=== PATIENT | male | born 1970 | race Caucasian/White ===

== ENCOUNTER 2021-09-05 12:41 | Emergency (ER) | payer OTHER, SELFPAY ==
[2021-09-05 12:56] VITALS: BP 150/96; PULSE 69; RESP 18; TEMP 36.6; O2SAT 100; BMI 26.4
--- NOTE | 2021-09-05 13:09 | DI.RAD.S_ITS ---
PROCEDURE: XR FOOT RT 2V INDICATIONS: pain, redness to top right foot 2nd 3rd digits TECHNIQUE: 2 views of the foot were acquired. COMPARISON: None. FINDINGS: Bones: No fractures or dislocations. No suspicious bony lesions. Mild degenerative changes of the great toe. Soft tissues: No tibiotalar joint effusion. Enthesophyte at the Achilles insertion of the calcaneus with mild soft tissue prominence. IMPRESSION: No acute osseous abnormality. Spurring of the Achilles insertion of the calcaneus post mild soft tissue swelling adjacently. Recommend correlation for tendinitis. Dictated by: Young Will D.O. on 09/05/2021 at 12:36 Approved by: Young Will D.O. on 09/05/2021 at 12:38
--- NOTE | 2021-09-05 13:11 | ED_ITS ---
HPI - Extremity Injury (Lower) <Roland Carrera PA-C - Last Filed: 09/05/21 16:22> General Chief Complaint: Extremity Injury, Lower Stated Complaint: pos dvt sent by [facility] Time Seen by Provider: 09/05/21 12:55 Source: patient Mode of arrival: Ambulatory History of Present Illness HPI Narrative: Freddie presents today with chief complaint of right foot swelling and discomfort that he 1st noticed today. He reports that he was wearing some new shoes at work this last week and thinks that that may have contributed to his symptoms. He denies any significant injury at this time. He went to the walk-in clinic today and they were concerned about possible blood clot recommend that he come down here to be evaluated. He reports that the pain is worse at the bottom of his foot towards the ball just underneath his great toe and 2nd toe. He denies any history of blood clots, recent surgery, recent travel. Related Data Home Medications Medication Instructions Recorded Confirmed MULTIVITAMIN 1 cap PO QDAY #0 11/09/12 duloxetine 60 mg capsule,delayed 60 mg PO DAILY 09/05/21 09/05/21 release Previous Rx's Medication Instructions Recorded cephalexin 500 mg capsule 500 mg PO TID #21 cap 09/05/21 Allergies Allergy/AdvReac Type Severity Reaction Status Date / Time amoxicillin Allergy Intermediate Rash Verified 09/05/21 16:07 doxycycline Allergy Intermediate Rash Verified 09/05/21 16:07 Review of Systems <Roland Carrera PA-C - Last Filed: 09/05/21 16:22> Review of Systems Narrative: As per HPI Patient History <Roland Carrera PA-C - Last Filed: 09/05/21 16:22> Social History Smoking Status: Never smoker Smoking Status: Never smoker alcohol intake frequency: 0-2 drinks per day Substance Use Type: does not use Exam <Roland Carrera PA-C - Last Filed: 09/05/21 16:22> Narrative Exam Narrative: Exam Narrative: Const General: cooperative, healthy appearing, comfortable, no acute distress, well developed and well groomed Nutritional Appearance: average body habitus Orientation: alert and oriented x3 HENMT Head: normal to inspection and atraumatic Ears: hearing grossly normal bilaterally Nose: external nose normal and nares normal Face and sinus: normal facial exam Neck Neck: normal visual inspection and supple Resp Effort & Inspection: normal respiratory effort, able to speak in complete sentences, no audible wheezes, not labored, no nasal flaring and no respiratory distress Neuro General: alert, oriented x3, gait normal, tone normal and moves all extremities Cognition: normal cognition Speech: speech normal Gait: normal gait Extremities: Lower extremities exposed. Warmth and erythema noted to the top of the right foot with surrounding erythema. No significant pedal edema or calf tenderness. Calf circumference is 40 cm bilaterally. Psych Appearance: grossly normal and well kempt Mental Status: mental status grossly normal Speech and Movement: speech and movement normal Mood: congruent mood Affect: normal affect Initial Vital Signs Initial Vital Signs: Vital Signs Temperature 98 F 09/05/21 12:56 Pulse Rate 69 09/05/21 12:56 Respiratory Rate 18 09/05/21 12:56 Blood Pressure 150/96 H 09/05/21 12:56 Pulse Oximetry 100 09/05/21 12:56 <Regina Kwan DO - Last Filed: 09/06/21 07:36> Initial Vital Signs Initial Vital Signs: Vital Signs Temperature 98 F 09/05/21 12:56 Pulse Rate 69 09/05/21 12:56 Respiratory Rate 18 09/05/21 12:56 Blood Pressure 150/96 H 09/05/21 12:56 Pulse Oximetry 100 09/05/21 12:56 Course <Roland Carrera PA-C - Last Filed: 09/05/21 16:22> Orders Ordered: Discontinued Medications Ketorolac Tromethamine (Ketorolac 30 Mg/Ml Vial) 30 mg IM NOW ONE Stop: 09/05/21 16:02 Last Admin: 09/05/21 16:07 Dose: 30 mg Documented by: FRED Vital Signs Vital signs: Vital Signs - 8 hr 09/05/21 12:56 Temperature 98 F Pulse Rate 69 Respiratory Rate 18 Blood Pressure 150/96 H Pulse Oximetry 100 <DO Sejal Ceron Last Filed: 09/06/21 07:36> Orders Ordered: Discontinued Medications Ketorolac Tromethamine (Ketorolac 30 Mg/Ml Vial) 30 mg IM NOW ONE Stop: 09/05/21 16:02 Last Admin: 09/05/21 16:07 Dose: 30 mg Documented by: FRED Vital Signs Vital signs: Vital Signs - 8 hr 09/05/21 12:56 Temperature 98 F Pulse Rate 69 Respiratory Rate 18 Blood Pressure 150/96 H Pulse Oximetry 100 MDM - Extremity Injury (Lower) <Roland Carrera PA-C - Last Filed: 09/05/21 16:22> Lab Data Labs: Lab Results 09/05/21 09/05/21 Range/Units 13:40 13:40 D-Dimer 420 H (<230) ng/mL Uric Acid 5.1 (3.5-8.5) mg/dL MDM Narrative Medical decision making narrative: Differential diagnosis includes DVT, gout, septic arthritis, superficial thrombophlebitis, cellulitis. Patient is able to range his toes without si gnificant pain both passively and actively. Ultrasound is reassuring for no DVT. He has equal calf diameter bilaterally. Erythema edema is predominantly located on his foot and ankle. We will treat for cellulitis at this time with return precautions discussed. Patient verbalizes understanding and agrees to the plan and has no further concerns at this time. <Regina Kwan DO - Last Filed: 09/06/21 07:36> Lab Data Labs: Lab Results 09/05/21 09/05/21 Range/Units 13:40 13:40 D-Dimer 420 H (<230) ng/mL Uric Acid 5.1 (3.5-8.5) mg/dL Discharge Plan Departure Patient Disposition: Home Clinical Impression: Cellulitis of foot, right Instructions: DI for Cellulitis -- Adult Activity Restrictions/Additional Instructions: It was very nice to meet you both this afternoon. Please take antibiotics in addition to anti-inflammatories to help treat symptoms. Please give your primary care office a call and schedule a follow-up appointment ideally for next week. If you develop fever, worsening swelling, increased pain please return for re-evaluation. Thank you Roland Carrera PA-C Prescriptions: New cephalexin 500 mg capsule 500 mg PO TID Qty: 21 0RF No Action duloxetine 60 mg capsule,delayed release(DR/EC) 60 mg PO DAILY 0RF MULTIVITAMIN 1 cap PO QDAY Qty: 0 0RF Referrals: Huseyin Cam MD [Primary Care Provider] - <Regina Kwan DO - Last Filed: 09/06/21 07:36> Cosign ED Attending Cosignature Attestation: I was immediately available in the department for consultation. Documentation has been reviewed.
[2021-09-05 14:08] LABS: Uric Acid 5.1 mg/dL (3.5-8.5)
[2021-09-05 14:09] LABS: D Dimer 420 ng/mL (<230)
--- NOTE | 2021-09-05 14:28 | DI.US.S_ITS ---
PROCEDURE: US PERIPH VENOUS LOW EXTREM RT INDICATIONS: LOWER LEG AND FOOT SWELLING. PAIN WITH STANDING. TECHNIQUE: Real-time imaging, as well as color and pulse Doppler interrogation, were performed of the lower extremity deep veins from the inguinal ligament to the popliteal fossa. COMPARISON: None. FINDINGS: The common femoral, femoral and popliteal veins are normally compressible, and free of intraluminal thrombus. Color and pulse Doppler demonstrate normal phasic intraluminal flow. There is normal augmentation response to distal compression maneuver. Edema is noted within this superficial soft tissues of the lower leg. IMPRESSION: No evidence of right lower extremity deep venous thrombosis. Nonspecific soft tissue edema of the lower leg. Dictated by: Young Will D.O. on 09/05/2021 at 15:07 Approved by: Young Will D.O. on 09/05/2021 at 15:09
[2021-09-05] MEDS: KETOROLAC 30 MG/ML VIAL IM (16:07)
== END 2021-09-05 16:16 | disposition home or self-care (01) ==
PROVIDERS: Emergency Provider Physician Assistant; PCP Internal Medicine
DX: L03.115 Cellulitis of right lower limb (principal)
CPT/HCPCS: 73620; 84550; 85379; 93971; 96372; 99283; J1885

== ENCOUNTER → 2025-07-01 15:37 | Outpatient (ROUT) | payer OTHER, SELFPAY ==
[2025-07-01 15:55] LABS: Add Manual Diff / Slide Review NO; Hematocrit 30.8 % (41-53); Hemoglobin 10.0 g/dL (13.5-17.5); Lymphocytes Absolute Auto 1900 /uL (1100-4500); Mean Corpuscular HGB Conc 32.3 % (30-36); Mean Corpuscular Hemoglobin 24.4 PG (26-34); Mean Corpuscular Volume 75.5 fL (80-100); Platelet Count 370 X10^3/uL (150-400)
[2025-07-01 16:04] LABS: Alanine Aminotransferase 19 IU/L (<50); Albumin 3.2 g/dL (3.5-5.0); Albumin Globulin Ratio 0.9 (1.0-2.8); Alkaline Phosphatase 166 U/L (38-126); Blood Urea Nitrogen 15 mg/dL (9-20); Calcium 8.6 mg/dL (8.4-10.2); Carbon Dioxide 21 mmol/L (22-32); Chloride 100 mmol/L (98-107); Estimated Glomerular Filt Rate > 60 mL/min (>60); Globulin 3.7 g/dL (1.7-4.1); Glucose 110 mg/dL (70-99); HEMOLYSIS < 15 (0-50); Magnesium 1.8 mg/dL (1.6-2.3); Phosphorous 3.5 mg/dL (2.5-4.5); Potassium 3.9 mmol/L (3.4-5.1); Sodium 130 mmol/L (137-145); Total Protein 6.9 g/dL (6.3-8.2)
== END ==
PROVIDERS: PCP Internal Medicine; Visit Provider Specialist
DX: B99.9 Unspecified infectious disease (principal); E43 Unspecified severe protein-calorie malnutrition; K65.1 Peritoneal abscess
CPT/HCPCS: 80053; 83735; 84100; 85025

== ENCOUNTER → 2025-07-10 08:37 | Outpatient (CLI) | payer OTHER, SELFPAY | LOC: WC 08:54 | PROVIDERS: Visit Provider Surgery | DX: K94.19 Other complications of enterostomy (principal); Z93.2 Ileostomy status | CPT/HCPCS: 99203; 99213 ==

== ENCOUNTER → 2025-07-17 11:28 | Outpatient (CLI) | payer OTHER, SELFPAY ==
--- OUTSIDE RECORDS SUMMARY | 2025-07-19 16:03 | XMS_ITS | Encounter Summary ---
Author Organization [facility] Address [address] [address] Care Team Providers Care Commercial Credit Analyst Name Role Phone Unavailable Primary Care Provider Unavailabl e Encounter Details Date Type Department Care Team (Late st Contact Info) Description 06/10/2025 Lab Requisition [facility] [address] [place] [address] [place] [address] Zenaida Maddox MD [address] [address] Unspecified severe protein-calorie malnutrition Social History Tobacco Use Types Packs/Day Years Used Date Smoking Tobacco: Never Assessed Sex and Gender Information Value Date Recorded Sex Assigned at Not on file Legal Sex Male 7:40 PM PDT Gender Identity Not on file Sexual Orientation Not on file documented as of this encounter Plan of Treatment Not on file documented as of this encounter Procedures Procedure Name Priority Date/Time Associated Diagnosis Comments *CBC WITH DIFFERENTIAL, LAB GENERATED ORDER Routine 06/10/2025 1:05 PM PDT Unspecified severe protein-calorie malnutrition CBC WITH DIFFERENTIAL Routine 06/10/2025 1:05 PM PDT Unspecified severe protein-calorie malnutrition C-REACTIVE PROTEIN Routine 06/10/2025 1: 05 PM PDT Unspecified severe protein-calorie malnutrition TRIGLYCERIDES Routine 06/10/2025 1:05 PM PDT Unspecified severe protein-calorie malnutrition PREALBUMIN Routine 06/10/2025 1:05 PM PDT Unspecified severe protein-calorie malnutrition PHOSPHORUS Routine 06/10/2025 1:05 PM PDT Unspecified severe protein-calorie malnutrition MAGNESIUM Routine 06/10/2025 1:05 PM PDT Unspecified severe protein-calorie malnutrition COMPREHENSIVE METABOLIC PANEL Routine 06/10/2025 1:05 PM PDT Unspecified severe protein-calorie malnutrition documented in this encounter Results * (ABNORMAL) CBC with Differential (06/10/2025 1:05 PM PDT) WBC 8.6 4.0 - 11.0 K/uL 06/10/2025 5:16 PM PDT [facility] RBC 4.44 4.31 - 5.77 M/uL 06/10/2025 5:16 PM PDT [facility] HGB 11.4(L) 13.2 - 17.5 g/dL 06/10/2025 5:16 PM PDT [facility] HCT 34.8(L) 38.9 - 49.9 % 06/10/2025 5:16 PM PDT [facility] MCV 78.4(L) 80.0 - 100.0 fL 06/10/2025 5:16 PM PDT [facility] MCH 25.7(L) 27.8 - 33.8 pg 06/10/2025 5:16 PM PDT [facility] MCHC 32.8 31.5 - 36.5 g/dL 06/10/2025 5:16 PM PDT [facility] RDW 15.8(H) 11.5 - 14.2 % 06/10/2025 5:16 PM PDT [facility] Platelets 264 150 - 400 K/uL 06/10/2025 5:16 PM PDT [facility] MPV 12.0 8.5 - 12.4 fL 06/10/2025 5:16 PM PDT [facility] Neutrophils % 67.6 % 06/10/2025 5:16 PM PDT [facility] Immat Gran % 0.3 % 06/10/2025 5:16 PM PDT [facility] Lymphocytes % 21.7 % 06/10/2025 5:16 PM PDT [facility] Monocytes % 8.4 % 06/10/2025 5:16 PM PDT [facility] Eosinophils % 1.9 % 06/10/2025 5:16 PM PDT [facility] Basophils % 0.1 % 06/10/2025 5:16 PM PDT [facility] Neutrophils # 5.8 1.5 - 8.0 K/uL 06/10/2025 5:16 PM PDT [facility] Immat Gran # 0.0 0.0 - 0.1 K/uL 06/10/2025 5:16 PM PDT [facility] Lymphocytes # 1.9 1.0 - 3.5 K/uL 06/10/2025 5:16 PM PDT [facility] Monocytes # 0.7 0.2 - 1.0 K/uL 06/10/2025 5:16 PM PDT [facility] Eosinophils # 0.2 0.0 - 0.5 K/uL 06/10/2025 5:16 PM PDT [facility] Basophils # 0.0 0.0 - 0.2 K/uL 06/10/2025 5:16 PM PDT [facility] nRBC 06/10/2025 5:16 PM PDT [facility] Blood Venipuncture / Unknown 06/10/2025 1:05 PM PDT 06/10/2025 5:05 PM PDT Zenaida Maddox MD LAB BLOOD ORDERABLES Final R esult [facility] [address] [place] [address] * Prealbumin (06/10/2025 1:05 PM PDT) Prealbumin 16.2 10.0 - 40.0 mg/dL 06/10/2025 11:25 PM PDT [facility] 710 Blood Venipuncture / Unknown 06/10/2025 1:05 PM PDT 06/10/2025 5:05 PM PDT Zenaida Maddox MD LAB BLOOD ORDERABLES Final R esult [facility] [address] [place] [address] * (ABNORMAL) C-Reactive Protein (06/10/2025 1:05 PM PDT) C-Reactive Protein 6.2(H) <1.0 mg/dL 06/10/2025 5:34 PM PDT [facility] Blood Venipuncture / Unknown 06/10/2025 1:05 PM PDT 06/10/2025 5:05 PM PDT [facility] - 06/10/2025 5:34 PM PDT Note: CRP is used to indicate the presence of an inflammatory process; hsCRP (high sensitivity CRP) is used for CVD risk assessment. Zenaida Maddox MD LAB BLOOD ORDERABLES Final R esult [facility] [address] [place], [place] [id number] * Triglycerides (06/10/2025 1:05 PM PDT) Triglycerides 60 <150 mg/dL 06/10/2025 11:25 PM PDT [facility] 710 Comment: Normal: <150 Borderline: 150-199 High: 200-499 Very High: > or = 500 Blood Venipuncture / Unknown 06/10/2025 1:05 PM PDT 06/10/2025 5:05 PM PDT Zenaida Maddox MD LAB BLOOD ORDERABLES Final R esult [facility] [address] [place] [id number] * Phosphorus (06/10/2025 1:05 PM PDT) Phosphorus 3.6 2.4 - 5.1 mg/dL 06/10/2025 5:34 PM PDT [facility] Blood Venipuncture / Unknown 06/10/2025 1:05 PM PDT 06/10/2025 5:05 PM PDT Zenaida Maddox MD LAB BLOOD ORDERABLES Final R esult [address] [id number] * (ABNORMAL) Magnesium (06/10/2025 1:05 PM PDT) [facility] Magnesium 1.7(L) 1.8 - 2.4 mg/dL 06/10/2025 5:34 PM PDT [facility] Blood Venipuncture / Unknown 06/10/2025 1:05 PM PDT 06/10/2025 5:05 PM PDT Zenaida Maddox MD LAB BLOOD ORDERABLES Final R esult [address] [phone] * (ABNORMAL) Comprehensive Metabolic Panel (06/10/2025 1:05 PM PDT) [facility] Sodium 134(L) 136 - 145 mmol/L 06/10/2025 5:34 PM PDT [facility] Potassium 3.9 3.5 - 5.1 mmol/L 06/10/2025 5:34 PM PDT [facility] Chloride 102 95 - 109 mmol/L 06/10/2025 5:34 PM PDT [facility] CO2 27 21 - 32 mmol/L 06/10/2025 5:34 PM PDT [facility] Anion Gap 5 3 - 15 mmol/L 06/10/2025 5:34 PM PDT [facility] Glucose 84 70 - 99 mg/dL 06/10/2025 5:34 PM PDT [facility] BUN 18 7 - 18 mg/dL 06/10/2025 5:34 PM PDT [facility] Creatinine 0.75 0.70 - 1.30 mg/dL 06/10/2025 5:34 PM PDT [facility] eGFR (CKD-EPI 2020) 108 >=60 mL/min/1. 73m2 06/10/2025 5:34 PM PDT [facility] Protein, Total 6.6 6.4 - 8.2 g/dL 06/10/2025 5:34 PM PDT [facility] Albumin 2.4(L) 3.4 - 5.0 g/dL 06/10/2025 5:34 PM PDT [facility] Globulin 4.2 2.7 - 4.3 g/dL 06/10/2025 5:34 PM PDT [facility] Calcium 8.9 8.5 - 10.1 mg/dL 06/10/2025 5:34 PM PDT [facility] Bilirubin, Total 0.2 0.1 - 1.2 mg/dL 06/10/2025 5:34 PM PDT [facility] Alkaline Phosphatase 182(H) 46 - 116 U/L 06/10/2025 5:34 PM PDT [facility] ALT 20 12 - 78 U/L 06/10/2025 5:34 PM PDT [facility] AST 17 15 - 41 U/L 06/10/2025 5:34 PM PDT [facility] Blood Venipuncture / Unknown 06/10/2025 1:05 PM PDT 06/10/2025 5:05 PM PDT us Zenaida Maddox MD LAB BLOOD ORDERABLES Final R esult [address] [address] documented in this encounter Visit Diagnoses Diagnosis Unspecified severe protein-calorie malnutrition documented in this encounter
--- OUTSIDE RECORDS SUMMARY | 2025-07-19 16:03 | XMS_ITS | Encounter Summary ---
Author Organization [facility] Address [address] [place] [address] Care Team Providers Care Head Inspector Name Role Phone Rasheed Kimble Primary Care Provider [phone] Reason for Referral * Outpatient Service (Urgent) - Authorized Specialty Diagnoses / Procedures Referred By Elena hood Referred To Contact Gastroenterology Diagnoses Enterocutaneous fistula Intra-abdominal abscess S/P right colectomy Procedures REF GASTROENTEROLOGY - EXTERNAL OFFICE/OUTPATIENT ESTABLISHED MOD MDM 30 MIN [address] [place] [address] Phone: tel: fax: [facility] [address] [place] [phone] Referral ID Status Reason Start Date Expiration Date Visits Requested Visits Authorized [id number] Authorized Evaluate and Treat-Surgery if Indicated 03/27/2025 03/27/2026 6 6 Encounter Details Date Type Department Care Team (Latest Contact Info) Description 03/27/2025 Community Orders Non [facility] Provider [address] [place] [address] Enterocutaneous fistula (Primary Dx); Intra-abdominal abscess; S/P right colectomy Social History Tobacco Use Types Packs/Day Years Used Date Smoking Tobacco: Never Assessed Sex and Gender Information Value Date Recorded Sex Assigned at Not on file Legal Sex Male 9:41 PM PST Gender Identity Not on file Sexual Orientation Not on file documented as of this encounter Plan of Treatment Not on file documented as of this encounter Visit Diagnoses Diagnosis Enterocutaneous fistula- Primary Fistula of intestine, excluding rectum and anus Intra-abdominal abscess Peritoneal abscess S/P right colectomy Other postprocedural status documented in this encounter Care Teams Head Inspector Relationship Specialty Start Date End Date Rasheed Kimble [address] [address] PCP - General 04/13/17 documented as of this encounter
--- OUTSIDE RECORDS SUMMARY | 2025-07-19 16:03 | XMS_ITS | Encounter Summary ---
Author Organization [facility] Address [address] [address] Care Team Providers Care Bulk Mail Clerk Name Role Phone Unavailable Primary Care Provider Unavailabl e Encounter Details Date Type Department Care Team (Late st Contact Info) Description 06/04/2025 Lab Requisition [facility] [place], [place] [address] [place], [place] [id number] Background, Provider Not In System [facility] [address] [phone] Unspecified infectious disease; Unspecified severe protein-calorie malnutrition; PH Lab Use Only Social History Tobacco Use Types Packs/Day Years [...] Comments *CBC WITH DIFFERENTIAL, LAB GENERATED ORDER STAT 06/04/2025 1:55 PM PDT Unspecified infectious disease Unspecified severe protein-calorie malnutrition PH Lab Use Only CBC WITH DIFFERENTIAL STAT 06/04/2025 1:55 PM PDT Unspecified infectious disease Unspecified severe protein-calorie malnutrition PH Lab Use Only PHOSPHORUS STAT 06/04/2025 1:55 PM PDT Unspecified infectious disease Unspecified severe protein-calorie malnutrition PH Lab Use Only MAGNESIUM STAT 06/04/2025 1:55 PM PDT Unspecified infectious disease Unspecified severe protein-calorie malnutrition PH Lab Use Only COMPREHENSIVE METABOLIC PANEL STAT 06/04/2025 1:55 PM PDT Unspecified infectious disease Unspecified severe protein-calorie malnutrition PH Lab Use Only documented in this encounter Results * (ABNORMAL) CBC with Differential (06/04/2025 1:55 PM PDT) WBC 7.6 4.0 - 11.0 K/uL 06/04/2025 8:25 PM PDT [facility] 710 RBC 4.26(L) 4.31 - 5.77 M/uL 06/04/2025 8:25 PM PDT [facility] 710 HGB 10.9(L) 13.2 - 17.5 g/dL 06/04/2025 8:25 PM PDT [facility] 710 HCT 35.4(L) 38.9 - 49.9 % 06/04/2025 8:25 PM PDT [facility] 710 MCV 83.1 80.0 - 100.0 fL 06/04/2025 8:25 PM PDT [facility] 710 MCH 25.6(L) 27.8 - 33.8 pg 06/04/2025 8:25 PM PDT [facility] 710 MCHC 30.8(L) 31.5 - 36.5 g/dL 06/04/2025 8:25 PM PDT [facility] 710 RDW 16.1(H) 11.5 - 14.2 % 06/04/2025 8:25 PM PDT [facility] 710 Platelets 304 150 - 400 K/uL 06/04/2025 8:25 PM PDT [facility] 710 MPV 12.4 8.5 - 12.4 fL 06/04/2025 8:25 PM PDT [facility] 710 Neutrophils % 60.3 % 06/04/2025 8:25 PM PDT [facility] 710 Immat Gran % 0.3 % 06/04/2025 8:25 PM PDT [facility] 710 Lymphocytes % 29.7 % 06/04/2025 8:25 PM PDT [facility] 710 Monocytes % 6.3 % 06/04/2025 8:25 PM PDT [facility] 710 Eosinophils % 3.3 % 06/04/2025 8:25 PM PDT [facility] 710 Basophils % 0.1 % 06/04/2025 8:25 PM PDT [facility] 710 Neutrophils # 4.6 1.5 - 8.0 K/uL 06/04/2025 8:25 PM PDT [facility] 710 Immat Gran # 0.0 0.0 - 0.1 K/uL 06/04/2025 8:25 PM PDT [facility] 710 Lymphocytes # 2.3 1.0 - 3.5 K/uL 06/04/2025 8:25 PM PDT [facility] 710 Monocytes # 0.5 0.2 - 1.0 K/uL 06/04/2025 8:25 PM PDT [facility] 710 Eosinophils # 0.3 0.0 - 0.5 K/uL 06/04/2025 8:25 PM PDT [facility] 710 Basophils # 0.0 0.0 - 0.2 K/uL 06/04/2025 8:25 PM PDT [facility] 710 nRBC 06/04/2025 8:25 PM PDT [place] [address] Blood 06/04/2025 1:55 PM PDT 06/04/2025 8:14 PM PDT Provider Not In System Background LAB BLOOD ORDE RABLES Final Result [address] [address] * Phosphorus (NOT [facility]) (06/04/2025 1:55 PM PDT) Phosphorus 2.8 2.4 - 5.1 mg/dL 06/04/2025 8:34 PM PDT [place] [address] Blood 06/04/2025 1:55 PM PDT 06/04/2025 8:14 PM PDT us Provider Not In System Background LAB BLOOD ORDE RABLES Final Result [address] [address] * Magnesium (NOT [facility]) (06/04/2025 1:55 PM PDT) Magnesium 1.7 1.6 - 2.6 mg/dL 06/04/2025 8:34 PM PDT [facility] 710 Blood 06/04/2025 1:55 PM PDT 06/04/2025 8:14 PM PDT us Provider Not In System Background LAB BLOOD ORDE ROBER Final Result [facility] [address] [place], [place] [id number] * (ABNORMAL) Comprehensive Metabolic Panel (NOT [facility]) (06/04/2025 1:55 PM PDT) Pathologist [facility] Sodium 135(L) 136 - 145 mmol/L 06/04/2025 8:34 PM PDT [facility] 710 Potassium 3.5 3.5 - 5.1 mmol/L 06/04/2025 8:34 PM PDT [facility] 710 Chloride 106 98 - 111 mmol/L 06/04/2025 8:34 PM PDT [facility] 710 CO2 21 21 - 32 mmol/L 06/04/2025 8:34 PM PDT [facility] 710 Anion Gap 8 3 - 12 mmol/L 06/04/2025 8:34 PM PDT [facility] 710 Glucose 117(H) 70 - 99 mg/dL 06/04/2025 8:34 PM PDT [facility] 710 BUN 17 9 - 23 mg/dL 06/04/2025 8:34 PM PDT [facility] 710 Creatinine 0.82 0.70 - 1.30 mg/dL 06/04/2025 8:34 PM PDT [facility] 710 eGFR (CKD-EPI 2020) 105 >=60 mL/min/1. 73m2 06/04/2025 8:34 PM PDT [facility] 710 Protein, Total 6.5 5.7 - 8.2 g/dL 06/04/2025 8:34 PM PDT [facility] 710 Albumin 2.4(L) 3.4 - 5.0 g/dL 06/04/2025 8:34 PM PDT [facility] 710 Globulin 4.1(H) 2.2 - 3.5 g/dL 06/04/2025 8:34 PM PDT [facility] 710 Calcium 8.7 8.7 - 10.4 mg/dL 06/04/2025 8:34 PM PDT [facility] 710 Bilirubin, Total <0.2(L) 0.3 - 1.2 mg/dL 06/04/2025 8:34 PM PDT [facility] 710 Alkaline Phosphatase 176(H) 38 - 126 U/L 06/04/2025 8:34 PM PDT [facility] 710 ALT 23 9 - 54 U/L 06/04/2025 8:34 PM PDT [place] [address] AST 19 13 - 40 U/L 06/04/2025 8:34 PM PDT [facility] 710 Blood 06/04/2025 1:55 PM PDT 06/04/2025 8:14 PM PDT us Provider Not In System Background LAB BLOOD ORDE ROBER Final Result Performing Organization Address City/State/[facility] Co de Phone Number [facility] [address] [place], [place] [phone] documented in this encounter Visit Diagnoses Diagnosis Unspecified infectious disease Unspecified severe protein-calorie malnutrition PH Lab Use Only Lab Use Only documented in this encounter
--- OUTSIDE RECORDS SUMMARY | 2025-07-19 16:03 | XMS_ITS | Clinical Summary ---
Author Organization Communication Science [facility] Address [address] [place] [address] Care Team Providers Care Rn Or Lpn Name Role Phone Selected, No Pcp Primary Care Provider Unavailab le Social History Tobacco Use Types Packs/Day Years Used Date Smoking Tobacco: Never Assessed Comments Unknown Sex and Gender Information Value Date Recorded Sex Assigned at Unknown 09/19/2019 4:35 PM PST Legal Sex Male 4:35 PM PST Gender Identity Not Listed 09/19/2019 4:35 PM PST Sexual Orientation Not on file Plan of Treatment Not on file Insurance [place] [facility] [place] [facility] [place] Care Teams Rn Or Lpn Relationship Specialty Start Date End Date Selected, No Pcp PCP - General PCP 05/02/20
--- OUTSIDE RECORDS SUMMARY | 2025-07-19 16:03 | XMS_ITS | Encounter Summary ---
Author Organization [facility] Address [address] [place] [address] Care Team Providers Care Polymerization Oven Operator Name Role Phone Rasheed Kimble Primary Care Provider [phone] Reason for Referral * Outpatient Service (Routine) - Authorized Specialty Diagnoses / Procedures Referred By Elena t Referred To Contact Infectious Disease Diagnoses Intra-abdominal infection Procedures REF INFECTIOUS DISEASE - EXTERNAL OFFICE/OUTPATIENT ESTABLISHED MOD MDM 30 MIN Zenaida Hernandez [id number] [place] [address] Phone: tel: fax: Medicine, [facility] [address] [address] [place] [address] Referral ID Status Reason Start Date Expiration Date Visits Requested Visits Authorized [id number] Authorized Evaluate and Treat-Surgery if Indicated 03/22/2025 03/22/2026 6 6 Encounter Details Date Type Department Care Team (Late st Contact Info) Description 03/22/2025 Community Orders Non [facility] Provider Zenaida Hernandez [id number] [place], [place] [id number] Intra-abdominal infection (Primary Dx) Social History Tobacco Use Types Packs/Day Years Used Date Smoking Tobacco: Never Assessed Sex and Gender Information Value Date Recorded Sex Assigned at Not on file Legal Sex Male 9:41 PM PST Gender Identity Not on file Sexual Orientation Not on file documented as of this encounter Plan of Treatment Not on file documented as of this encounter Visit Diagnoses Diagnosis Intra-abdominal infection- Primary Unspecified infectious and parasitic diseases documented in this encounter Care Teams Polymerization Oven Operator Relationship Specialty Start Date End Date Rasheed Kimble [address] [place] [address] PCP - General 04/13/17 documented as of this encounter
--- OUTSIDE RECORDS SUMMARY | 2025-07-19 16:04 | XMS_ITS | Encounter Summary ---
Author Organization [facility] Address [address] [address] Care Team Providers Care Aviation Medicine Specialist Name Role Phone Unavailable Primary Care Provider Unavailabl e Encounter Details Date Type Department Care Team (Late st Contact Info) Description 06/24/2025 Lab Requisition [facility] [address] [place] [address] [place] [address] Rasheed Kimble MD [address] [place] [address] Unspecified severe protein-calorie malnutrition Social History Tobacco [...] *CBC WITH DIFFERENTIAL, LAB GENERATED ORDER Routine 06/24/2025 9:45 AM PDT Unspecified severe protein-calorie malnutrition CBC WITH DIFFERENTIAL Routine 06/24/2025 9:45 AM PDT Unspecified severe protein-calorie malnutrition PHOSPHORUS Routine 06/24/2025 9:45 AM PDT Unspecified severe protein-calorie malnutrition MAGNESIUM Routine 06/24/2025 9:45 AM PDT Unspecified severe protein-calorie malnutrition COMPREHENSIVE METABOLIC PANEL Routine 06/24/2025 9:45 AM PDT Unspecified severe protein-calorie malnutrition documented in this encounter Results * (ABNORMAL) CBC with Differential (06/24/2025 9:45 AM PDT) WBC 11.0 4.0 - 11.0 K/uL 06/24/2025 6:12 PM PDT [facility] RBC 4.56 4.31 - 5.77 M/uL 06/24/2025 6:12 PM PDT [facility] HGB 11.3(L) 13.2 - 17.5 g/dL 06/24/2025 6:12 PM PDT [facility] HCT 35.9(L) 38.9 - 49.9 % 06/24/2025 6:12 PM PDT [facility] MCV 78.7(L) 80.0 - 100.0 fL 06/24/2025 6:12 PM PDT [facility] MCH 24.8(L) 27.8 - 33.8 pg 06/24/2025 6:12 PM PDT [facility] MCHC 31.5 31.5 - 36.5 g/dL 06/24/2025 6:12 PM PDT [facility] RDW 15.8(H) 11.5 - 14.2 % 06/24/2025 6:12 PM PDT [facility] Platelets 363 150 - 400 K/uL 06/24/2025 6:12 PM PDT [facility] MPV 12.2 8.5 - 12.4 fL 06/24/2025 6:12 PM PDT [facility] Neutrophils % 70.0 % 06/24/2025 6:12 PM PDT [facility] Immat Gran % 0.6 % 06/24/2025 6:12 PM PDT [facility] Lymphocytes % 21.1 % 06/24/2025 6:12 PM PDT [facility] Monocytes % 6.6 % 06/24/2025 6:12 PM PDT [facility] Eosinophils % 1.5 % 06/24/2025 6:12 PM PDT [facility] Basophils % 0.2 % 06/24/2025 6:12 PM PDT [facility] Neutrophils # 7.7 1.5 - 8.0 K/uL 06/24/2025 6:12 PM PDT [facility] Immat Gran # 0.1 0.0 - 0.1 K/uL 06/24/2025 6:12 PM PDT [facility] Lymphocytes # 2.3 1.0 - 3.5 K/uL 06/24/2025 6:12 PM PDT [facility] Monocytes # 0.7 0.2 - 1.0 K/uL 06/24/2025 6:12 PM PDT [facility] Eosinophils # 0.2 0.0 - 0.5 K/uL 06/24/2025 6:12 PM PDT [facility] Basophils # 0.0 0.0 - 0.2 K/uL 06/24/2025 6:12 PM PDT [facility] nRBC 06/24/2025 6:12 PM PDT [facility] Blood 06/24/2025 9:45 AM PDT 06/24/2025 6:09 PM PDT Rasheed Kimble MD LAB BLOOD ORDERABLES Final Resu lt Performing Organization Address [facility] de Phone Number [facility] [address] [place], [place] [phone] * Phosphorus (06/24/2025 9:45 AM PDT) Phosphorus 4.0 2.4 - 5.1 mg/dL 06/24/2025 6:26 PM PDT [facility] Blood 06/24/2025 9:45 AM PDT 06/24/2025 6:09 PM PDT Rasheed Kimble MD LAB BLOOD ORDERABLES Final Resu lt Performing Organization Address [facility] de Phone Number [facility] [address] [place], [place] [phone] * Magnesium (06/24/2025 9:45 AM PDT) Magnesium 1.9 1.8 - 2.4 mg/dL 06/24/2025 6:26 PM PDT [facility] Blood 06/24/2025 9:45 AM PDT 06/24/2025 6:09 PM PDT Rasheed Kimble MD LAB BLOOD ORDERABLES Final Resu lt Performing Organization Address City/[facility]/ZIP Co de Phone Number [address] [address] * (ABNORMAL) Comprehensive Metabolic Panel (06/24/2025 9:45 AM PDT) Sodium 137 136 - 145 mmol/L 06/24/2025 6:26 PM PDT [facility] Potassium 4.3 3.5 - 5.1 mmol/L 06/24/2025 6:26 PM PDT [facility] Chloride 104 95 - 109 mmol/L 06/24/2025 6:26 PM PDT [facility] CO2 26 21 - 32 mmol/L 06/24/2025 6:26 PM PDT [facility] Anion Gap 7 3 - 15 mmol/L 06/24/2025 6:26 PM PDT [facility] Glucose 123(H) 70 - 99 mg/dL 06/24/2025 6:26 PM PDT [facility] BUN 18 7 - 18 mg/dL 06/24/2025 6:26 PM PDT [facility] Creatinine 0.86 0.70 - 1.30 mg/dL 06/24/2025 6:26 PM PDT [facility] eGFR (CKD-EPI 2020) 104 >=60 mL/min/1. 73m2 06/24/2025 6:26 PM PDT [facility] Protein, Total 7.1 6.4 - 8.2 g/dL 06/24/2025 6:26 PM PDT [facility] Albumin 2.4(L) 3.4 - 5.0 g/dL 06/24/2025 6:26 PM PDT [facility] Globulin 4.7(H) 2.7 - 4.3 g/dL 06/24/2025 6:26 PM PDT [facility] Calcium 8.8 8.5 - 10.1 mg/dL 06/24/2025 6:26 PM PDT [facility] Bilirubin, Total 0.3 0.1 - 1.2 mg/dL 06/24/2025 6:26 PM PDT [facility] Alkaline Phosphatase 200(H) 46 - 116 U/L 06/24/2025 6:26 PM PDT [facility] ALT 23 12 - 78 U/L 06/24/2025 6:26 PM PDT [facility] AST 14(L) 15 - 41 U/L 06/24/2025 6:26 PM PDT [facility] Blood 06/24/2025 9:45 AM PDT 06/24/2025 6:09 PM PDT us Rasheed Kimble MD LAB BLOOD ORDERABLES Final Resu lt [facility] [address] [place] [address] documented in this encounter Visit Diagnoses Diagnosis Unspecified severe protein-calorie malnutrition documented in this encounter
--- OUTSIDE RECORDS SUMMARY | 2025-07-19 16:04 | XMS_ITS | Encounter Summary ---
Author Organization [facility] Address [address] [place] [address] Care Team Providers Care Customer Experience Professional Name Role Phone Rasheed Kimble Primary Care Provider [phone] Reason for Referral * PT/OT/ST (Urgent) - Authorized Specialty Diagnoses / Procedures Referred By Elena hood Referred To Contact Physical Therapy Diagnoses Patellofemoral syndrome, left Lateral subluxation of patella, left, initial encounter Patellar tendinitis of left knee Iliotibial band syndrome of left side Procedures REF PHYSICAL THERAPY - EXTERNAL THERA PROC 1+ AREAS EA 15 MIN THERA EXERCISES Justino Patricio [address] [address] Phone: tel: fax: Therapy, [facility] Physical [address] [place] [address] Referral ID Status Reason Start Date Expiration Date Visits Requested Visits Authorized [id number] Authorized Itemized Services 11/12/2024 11/12/2025 15 15 Encounter Details Date Type Department Care Team (Late st Contact Info) Description 11/12/2024 Community Orders Non [facility] Provider Justino Patricio [address] [address] Patellofemoral syndrome, left (Primary Dx); Lateral subluxation of patella, left, initial encounter; Patellar tendinitis of left knee; Iliotibial band syndrome of left side Social History Tobacco Use Types Packs/Day Years Used Date Smoking Tobacco: Never Assessed Sex and Gender Information Value Date Recorded Sex Assigned at Not on file Legal Sex Male 9:41 PM PST Gender Identity Not on file Sexual Orientation Not on file documented as of this encounter Plan of Treatment Not on file documented as of this encounter Visit Diagnoses Diagnosis Patellofemoral syndrome, left- Primary Pain in joint, lower leg Lateral subluxation of patella, left, initial encounter Patellar tendinitis of left knee Patellar tendinitis Iliotibial band syndrome of left side Other disorder of muscle, ligament, and fascia documented in this encounter Care Teams Customer Experience Professional Relationship Specialty Start Date End Date Rasheed Kimble [address] [address] PCP - General 04/13/17 documented as of this encounter
--- OUTSIDE RECORDS SUMMARY | 2025-07-19 16:04 | XMS_ITS | Clinical Summary ---
Author Organization [facility] Address [address] [place] [address] Care Team Providers Care Stuffer Name Role Phone Unavailable Primary Care Provider Unavailabl e Encounters Date Type Department Care Team Description 06/24/2025 Lab Requisition [facility] [address] [place] [address] [place] [address] Rasheed Kimble MD Unspecified severe protein-calorie malnutrition 06/17/2025 Lab Requisition [facility] [address] [place] [address] [address] [place], [place] [id number] Eloisa Zamora PA-C Unspecified severe protein-calorie malnutrition 06/10/2025 Lab Requisition [facility] [address] [place] [address] [address] [place], [place] [address] Zenaida Maddox MD Unspecified severe protein-calorie malnutrition 06/04/2025 Lab Requisition [place] [address] [facility] [place] [place] [id number] Background, Provider Not In System Unspecified infectious disease; Unspecified severe protein-calorie malnutrition; PH Lab Use Only 05/29/2025 Lab Requisition [place], [place] [address] [place], [place] [address] Rasheed Kimble MD PH Lab Use Only from Last 3 Months Social History Tobacco Use Types Packs/Day Years Used Date Smoking Tobacco: Never Assessed Sex and Gender Information Value Date Recorded Sex Assigned at Not on file Legal Sex Male 7:40 PM PDT Gender Identity Not on file Sexual Orientation Not on file Plan of Treatment Not on file Procedures Procedure Name Priority Date/Time Associated Diagnosis [...] 9:45 AM PDT Unspecified severe protein-calorie malnutrition *CBC WITH DIFFERENTIAL, LAB GENERATED ORDER Routine 06/17/2025 11:15 AM PDT Unspecified severe protein-calorie malnutrition PHOSPHORUS Routine 06/17/2025 11:15 AM PDT Unspecified severe protein-calorie malnutrition MAGNESIUM Routine 06/17/2025 11:15 AM PDT Unspecified severe protein-calorie malnutrition CBC WITH DIFFERENTIAL Routine 06/17/2025 11:15 AM PDT Unspecified severe protein-calorie malnutrition COMPREHENSIVE METABOLIC PANEL Routine 06/17/2025 11:15 AM PDT Unspecified severe protein-calorie malnutrition *CBC WITH DIFFERENTIAL, LAB GENERATED ORDER Routine [...] 1:05 PM PDT Unspecified severe protein-calorie malnutrition *CBC WITH DIFFERENTIAL, LAB GENERATED ORDER STAT [...] severe protein-calorie malnutrition PH Lab Use Only PREALBUMIN Routine 05/29/2025 1:27 PM PDT C-REACTIVE PROTEIN Routine 05/29/2025 1: 27 PM PDT CBC WITH DIFFERENTIAL Routine 05/29/2025 1:27 PM PDT COMPREHENSIVE METABOLIC PANEL Routine 05/29/2025 1:27 PM PDT PHOSPHORUS Routine 05/29/2025 1:27 PM PDT MAGNESIUM Routine 05/29/2025 1:27 PM PDT TRIGLYCERIDES Routine 05/29/2025 1:27 PM PDT *CBC WITH DIFFERENTIAL, LAB GENERATED ORDER STAT 05/29/2025 1:27 PM PDT PH Lab Use Only [facility] Routine 05/29/2025 1: 27 PM PDT PH Lab Use Only PREALBUMIN STAT 05/29/2025 1:27 PM PDT PH Lab Use Only PHOSPHORUS STAT 05/29/2025 1:27 PM PDT PH Lab Use Only MAGNESIUM STAT 05/29/2025 1:27 PM PDT PH Lab Use Only C-REACTIVE PROTEIN STAT 05/29/2025 1: 27 PM PDT PH Lab Use Only CBC WITH DIFFERENTIAL STAT 05/29/2025 1:27 PM PDT PH Lab Use Only COMPREHENSIVE METABOLIC PANEL STAT 05/29/2025 1:27 PM PDT PH Lab Use Only from Last 3 Months Results * (ABNORMAL) CBC with Differential (06/24/2025 9:45 AM PDT) Only the most recent of5 resultswithin the time period is included. Pathologist [facility] WBC 11.0 4.0 - 11.0 K/uL 06/24/2025 [...] - 400 K/uL 06/24/2025 6:12 PM PDT [facility] MPV 12.2 8.5 - 12.4 fL 06/24/2025 6:12 PM PDT [facility] Neutrophils % 70.0 % 06/24/2025 6:12 PM PDT [facility] Immat Gran % 0.6 % 06/24/2025 6:12 PM PDT [facility] Lymphocytes % 21.1 % 06/24/2025 6:12 PM PDT [facility] Monocytes % 6.6 % 06/24/2025 6:12 PM PDT [facility] Eosinophils % 1.5 % 06/24/2025 6:12 PM PDT [facility] Basophils % 0.2 % 06/24/2025 6:12 PM PDT [facility] Neutrophils # 7.7 1.5 - 8.0 K/uL 06/24/2025 6:12 PM PDT [facility] Immat Gran # 0.1 0.0 - 0.1 K/uL 06/24/2025 6:12 PM PDT [facility] Lymphocytes # 2.3 1.0 - 3.5 K/uL 06/24/2025 6:12 PM PDT [facility] Monocytes # 0.7 0.2 - 1.0 K/uL 06/24/2025 6:12 PM PDT [facility] Eosinophils # 0.2 0.0 - 0.5 K/uL 06/24/2025 6:12 PM PDT [facility] Basophils # 0.0 0.0 - 0.2 K/uL 06/24/2025 6:12 PM PDT [facility] nRBC 06/24/2025 6:12 PM PDT [facility] Blood 06/24/2025 9:45 AM PDT 06/24/2025 6:09 PM PDT us Rasheed Kimble MD LAB BLOOD ORDERABLES Final Resu lt [facility] [address] [place] [address] * Phosphorus (06/24/2025 9:45 AM PDT) Only the most recent of6 resultswithin the time period is included. Pathologist [facility] Phosphorus 4.0 2.4 - 5.1 mg/dL 06/24/2025 6:26 PM PDT [facility] Blood 06/24/2025 9:45 AM PDT 06/24/2025 6:09 PM PDT us Rasheed Kimble MD LAB BLOOD ORDERABLES Final Resu lt Performing Organization Address [facility] de Phone Number [address] [address] * Magnesium (06/24/2025 9:45 AM PDT) Only the most recent of6 resultswithin the time period is included. [facility] Magnesium 1.9 1.8 - 2.4 mg/dL 06/24/2025 6:26 PM PDT [facility] Blood 06/24/2025 9:45 AM PDT 06/24/2025 6:09 PM PDT us Rasheed Kimble MD LAB BLOOD ORDERABLES Final Resu lt Performing Organization Address [facility] de Phone Number [address] [address] * (ABNORMAL) Comprehensive Metabolic Panel (06/24/2025 9:45 AM PDT) Only the most recent of6 resultswithin the time period is included. [facility] Sodium 137 136 - 145 mmol/L 06/24/2025 6:26 PM PDT [facility] Potassium 4.3 3.5 - 5.1 mmol/L 06/24/2025 6:26 PM PDT [facility] Chloride 104 95 - 109 mmol/L 06/24/2025 6:26 PM PDT [facility] CO2 26 21 - 32 mmol/L 06/24/2025 6:26 PM PDT [facility] Anion Gap 7 3 - 15 mmol/L 06/24/2025 6:26 PM PDT [facility] Glucose 123(H) 70 - 99 mg/dL 06/24/2025 6:26 PM PDT [facility] BUN 18 7 - 18 mg/dL 06/24/2025 6:26 PM PDT [facility] Creatinine 0.86 0.70 - 1.30 mg/dL 06/24/2025 6:26 PM PDT [facility] eGFR (CKD-EPI 2020) 104 >=60 mL/min/1. 73m2 06/24/2025 6:26 PM PDT [facility] Protein, Total 7.1 6.4 - 8.2 g/dL 06/24/2025 6:26 PM PDT [facility] Albumin 2.4(L) 3.4 - 5.0 g/dL 06/24/2025 6:26 PM PDT [facility] Globulin 4.7(H) 2.7 - 4.3 g/dL 06/24/2025 6:26 PM PDT [facility] Calcium 8.8 8.5 - 10.1 mg/dL 06/24/2025 6:26 PM PDT [facility] Bilirubin, Total 0.3 0.1 - 1.2 mg/dL 06/24/2025 6:26 PM PDT [facility] Alkaline Phosphatase 200(H) 46 - 116 U/L 06/24/2025 6:26 PM PDT [facility] ALT 23 12 - 78 U/L 06/24/2025 6:26 PM PDT [facility] AST 14(L) 15 - 41 U/L 06/24/2025 6:26 PM PDT [facility] Blood 06/24/2025 9:45 AM PDT 06/24/2025 6:09 PM PDT us Rasheed Kimble MD LAB BLOOD ORDERABLES Final Resu lt [address] [address] * (ABNORMAL) C-Reactive Protein (06/10/2025 1:05 PM PDT) Only the most recent of3 resultswithin the time period is included. C-Reactive Protein 6.2(H) <1.0 mg/dL 06/10/2025 5:34 PM PDT [facility] Blood Venipuncture / Unknown 06/10/2025 1:05 PM PDT 06/10/2025 5:05 PM PDT Narrative [facility] - 06/10/2025 5:34 PM PDT Note: CRP is used to indicate the presence of an inflammatory process; hsCRP (high sensitivity CRP) is used for CVD risk assessment. Zenaida Maddox MD LAB BLOOD ORDERABLES Final R esult Performing Organization Address City/[facility] Co de Phone Number [facility] [address] [place], [place] [phone] * Triglycerides (06/10/2025 1:05 PM PDT) Only the most recent of2 resultswithin the time period is included. Triglycerides 60 <150 mg/dL 06/10/2025 11:25 PM PDT [facility] 710 Comment: Normal: <150 Borderline: 150-199 High: 200-499 Very High: > or = 500 Blood Venipuncture / Unknown 06/10/2025 1:05 PM PDT 06/10/2025 5:05 PM PDT Result [facility] Zenaida Maddox MD LAB BLOOD ORDERABLES Final R esult Performing Organization Address [facility] Co de Phone Number [facility] [address] [place] [phone] * Prealbumin (06/10/2025 1:05 PM PDT) Only the most recent of3 resultswithin the time period is included. Prealbumin 16.2 10.0 - 40.0 mg/dL 06/10/2025 11:25 PM PDT [facility] 710 Blood Venipuncture / Unknown 06/10/2025 1:05 PM PDT 06/10/2025 5:05 PM PDT Zenaida Maddox MD LAB BLOOD ORDERABLES Final R esult Performing Organization Address City/[facility]/ZIP Co de Phone Number [facility] [address] [place] [address] * [facility] Through (05/29/2025 1:27 PM PDT) [facility] Pass Through Pass through specimens were routed to [facility] via a packing list. 05/29/2025 11:16 PM PDT [facility] [address] Other 05/29/2025 1:27 PM PDT 05/29/2025 7:04 PM PDT us Rasheed Kimble MD LAB BLOOD ORDERABLES Final Resu lt [employer] [address] [place] [address] * (ABNORMAL) CBC with Differential (05/29/2025 1:27 PM PDT) [facility] White Blood Cell Count 11.0 4.0 - 11.0 K/uL [facility] Red Blood Cell Count 4.41 4.31 - 5.77 M/uL [facility] Hemoglobin 11.4(L) 13.2 - 17.5 g/dL [facility] Hematocrit 36.6(L) 38.9 - 49.9 % [facility] MCV 83.0 80.0 - 100.0 fL [facility] MCH 25.9(L) 27.8 - 33.8 pg [facility] MCHC 31.1(L) 31.5 - 36.5 g/dL [facility] RDW 16.3(H) 11.5 - 14.2 % [facility] Platelet Count 306 150 - 400 K/uL [facility] MPV 11.6 8.5 - 12.4 fL [facility] Neutrophils 67.6 % [facility] Immat Gran % 0.4 % [facility] Lymphocytes 19.3 % [facility] Monocytes 10.8 % [facility] Eosinophils 1.7 % [facility] Basophils 0.2 % [facility] Neutrophils # 7.4 1.5 - 8.0 K/uL [facility] Im[facility] Gran # 0.0 0.0 - 0.1 K/uL [facility] Lymphocytes # 2.1 1.0 - 3.5 K/uL [facility] Monocytes # 1.2(H) 0.2 - 1.0 K/uL [facility] Eosinophils # 0.2 0.0 - 0.5 K/uL [facility] Basophils # 0.0 0.0 - 0.2 K/uL [facility] Comment: Test Performed at: [facility] [address] [place] [phone] OUMOU MORA MD,PHD 05/29/2025 1:27 PM PDT 05/29/2025 8:07 PM PDT us Rasheed Kimble MD LAB BLOOD ORDERABLES Final Resu lt [facility] [phone] from Last 3 Months Insurance [facility]
--- OUTSIDE RECORDS SUMMARY | 2025-07-19 16:04 | XMS_ITS | Encounter Summary ---
Author Organization [facility] Address [address] [address] Care Team Providers Care Cloth Finishing Range Operator Name Role Phone Unavailable Primary Care Provider Unavailabl e Encounter Details Date Type Department Care Team (Late st Contact Info) Description 05/29/2025 Lab Requisition [place], [place] [address] [place], [place] [address] Rasheed Kimble MD [address] [place], [place] [phone] PH Lab Use Only Social History Tobacco [...] Procedure Name Priority Date/Time Associated Diagnosis Comments [facility] Routine 05/29/2025 1: 27 PM PDT PH Lab Use Only *CBC WITH DIFFERENTIAL, LAB GENERATED ORDER STAT 05/29/2025 1:27 PM PDT PH Lab Use Only CBC [...] 1:27 PM PDT PH Lab Use Only documented in this encounter Results * (ABNORMAL) CBC with Differential (05/29/2025 1:27 PM PDT) [facility] WBC 11.0 4.0 - 11.0 K/uL 05/29/2025 7:52 PM PDT [facility] 710 RBC 4.41 4.31 - 5.77 M/uL 05/29/2025 7:52 PM PDT [facility] 710 HGB 11.4(L) 13.2 - 17.5 g/dL 05/29/2025 7:52 PM PDT [facility] 710 HCT 36.6(L) 38.9 - 49.9 % 05/29/2025 7:52 PM PDT [facility] 710 MCV 83.0 80.0 - 100.0 fL 05/29/2025 7:52 PM PDT [facility] 710 MCH 25.9(L) 27.8 - 33.8 pg 05/29/2025 7:52 PM PDT [facility] 710 MCHC 31.1(L) 31.5 - 36.5 g/dL 05/29/2025 7:52 PM PDT [facility] 710 RDW 16.3(H) 11.5 - 14.2 % 05/29/2025 7:52 PM PDT [facility] 710 Platelets 306 150 - 400 K/uL 05/29/2025 7:52 PM PDT [facility] 710 MPV 11.6 8.5 - 12.4 fL 05/29/2025 7:52 PM PDT [facility] 710 Neutrophils % 67.6 % 05/29/2025 7:52 PM PDT [facility] 710 Immat Gran % 0.4 % 05/29/2025 7:52 PM PDT [facility] 710 Lymphocytes % 19.3 % 05/29/2025 7:52 PM PDT [facility] 710 Monocytes % 10.8 % 05/29/2025 7:52 PM PDT [facility] 710 Eosinophils % 1.7 % 05/29/2025 7:52 PM PDT [facility] 710 Basophils % 0.2 % 05/29/2025 7:52 PM PDT [facility] 710 Neutrophils # 7.4 1.5 - 8.0 K/uL 05/29/2025 7:52 PM PDT [facility] 710 Immat Gran # 0.0 0.0 - 0.1 K/uL 05/29/2025 7:52 PM PDT [facility] 710 Lymphocytes # 2.1 1.0 - 3.5 K/uL 05/29/2025 7:52 PM PDT [facility] 710 Monocytes # 1.2(H) 0.2 - 1.0 K/uL 05/29/2025 7:52 PM PDT [facility] 710 Eosinophils # 0.2 0.0 - 0.5 K/uL 05/29/2025 7:52 PM PDT [facility] 710 Basophils # 0.0 0.0 - 0.2 K/uL 05/29/2025 7:52 PM PDT [facility] 710 nRBC 05/29/2025 7:52 PM PDT [facility] 710 Blood 05/29/2025 1:27 PM PDT 05/29/2025 7:04 PM PDT Rasheed Kimble MD LAB BLOOD ORDERABLES Final Resu lt Performing Organization Address City/[facility] [address]/ZIP Co de Phone Number [address] [address] * [facility] (05/29/2025 1:27 PM PDT) Pass Through Pass through specimens were routed to [facility] via a packing list. 05/29/2025 11:16 PM PDT [place] [address] Other 05/29/2025 1:27 PM PDT 05/29/2025 7:04 PM PDT Rasheed Kimble MD LAB BLOOD ORDERABLES Final Resu lt [place] [address] [place] [address] * Prealbumin (NOT [facility], [facility]) (05/29/2025 1:27 PM PDT) Prealbumin 18.7 10.0 - 40.0 mg/dL 05/29/2025 8:06 PM PDT [facility] 710 Blood 05/29/2025 1:27 PM PDT 05/29/2025 7:04 PM PDT Rasheed Kimble MD LAB BLOOD ORDERABLES Final Resu lt [address] [phone] * Phosphorus (NOT [facility]) (05/29/2025 1:27 PM PDT) Phosphorus 3.5 2.4 - 5.1 mg/dL 05/29/2025 8:06 PM PDT [facility] 710 Blood 05/29/2025 1:27 PM PDT 05/29/2025 7:04 PM PDT Rasheed Kimble MD LAB BLOOD ORDERABLES Final Resu lt Performing Organization Address [facility] [address]/[facility] Co de Phone Number [address] [phone] * Magnesium (NOT [facility]) (05/29/2025 1:27 PM PDT) Magnesium 1.8 1.6 - 2.6 mg/dL 05/29/2025 8:06 PM PDT [place] [address] Blood 05/29/2025 1:27 PM PDT 05/29/2025 7:04 PM PDT Rasheed Kimble MD LAB BLOOD ORDERABLES Final Resu lt Performing Organization Address [facility] [address]/[facility] Co de Phone Number [address] [phone] * (ABNORMAL) C-Reactive Protein (NOT [facility]) (05/29/2025 1:27 PM PDT) C-Reactive Protein 3.9(H) <1.0 mg/dL 05/29/2025 8:06 PM PDT [facility] 710 Blood 05/29/2025 1:27 PM PDT 05/29/2025 7:04 PM PDT Narrative [facility] 710 - 05/29/2025 8:06 PM PDT Note: CRP is used to indicate the presence of an inflammatory process; hsCRP (high sensitivity CRP) is used for CVD risk assessment. us Rasheed Kimble MD LAB BLOOD ORDERABLES Final Resu lt [facility] [address] [place] [address] * (ABNORMAL) Comprehensive Metabolic Panel (NOT [facility]) (05/29/2025 1:27 PM PDT) Pathologist [facility] Sodium 137 136 - 145 mmol/L 05/29/2025 8:06 PM PDT [facility] 710 Potassium 3.8 3.5 - 5.1 mmol/L 05/29/2025 8:06 PM PDT [facility] 710 Chloride 105 98 - 111 mmol/L 05/29/2025 8:06 PM PDT [facility] 710 CO2 21 21 - 32 mmol/L 05/29/2025 8:06 PM PDT [facility] 710 Anion Gap 11 3 - 12 mmol/L 05/29/2025 8:06 PM PDT [facility] 710 Glucose 98 70 - 99 mg/dL 05/29/2025 8:06 PM PDT [facility] 710 BUN 21 9 - 23 mg/dL 05/29/2025 8:06 PM PDT [facility] 710 Creatinine 0.83 0.70 - 1.30 mg/dL 05/29/2025 8:06 PM PDT [facility] 710 eGFR (CKD-EPI 2020) 105 >=60 mL/min/1. 73m2 05/29/2025 8:06 PM PDT [facility] 710 Protein, Total 6.3 5.7 - 8.2 g/dL 05/29/2025 8:06 PM [facility] 710 Albumin 2.3(L) 3.4 - 5.0 g/dL 05/29/2025 8:06 PM PDT [facility] 710 Globulin 4.0(H) 2.2 - 3.5 g/dL 05/29/2025 8:06 PM PDT [place] [address] Calcium 8.9 8.7 - 10.4 mg/dL 05/29/2025 8:06 PM PDT [facility] 710 Bilirubin, Total <0.2(L) 0.3 - 1.2 mg/dL 05/29/2025 8:06 PM PDT [place] [address] Alkaline Phosphatase 168(H) 38 - 126 U/L 05/29/2025 8:06 PM [place] [address] ALT 21 9 - 54 U/L 05/29/2025 8:06 PM PDT [place] [address] AST 15 13 - 40 U/L 05/29/2025 8:06 PM [place] [address] Blood 05/29/2025 1:27 PM PDT 05/29/2025 7:04 PM PDT us Rasheed Kimble MD LAB BLOOD ORDERABLES Final Resu lt [place] [address] [address] [place] [address] documented in this encounter Visit Diagnoses Diagnosis PH Lab Use Only Lab Use Only documented in this encounter
--- OUTSIDE RECORDS SUMMARY | 2025-07-19 16:04 | XMS_ITS | Encounter Summary ---
Author Organization [facility] Address [address] [place] [address] Care Team Providers Care Telesales Supervisor Name Role Phone Rasheed Kimble Primary Care Provider [phone] Reason for Referral * Pharmacy/Infusion (Routine) - Authorized Specialty Diagnoses / Procedures Referred By Elena hood Referred To Contact Infusion Services Diagnoses Iron deficiency anemia, unspecified iron deficiency anemia type Procedures REF INFUSION CAM PRE-AUTHORIZATION IRON DEXTRAN INJ 50 MG Rasheed Gould III [facility] [address] [place] [address] [facility] [address] [address] [place] [address] Referral ID Status Reason Start Date Expiration Date Visits Requested Visits Authorized [id number] Authorized Itemized Services 4 07/16/2025 [id number] Encounter Details Date Type Department Care Team (Late st Contact Info) Description 07/16/2024 Community Orders Non [facility] Provider Rasheed Gould III [facility] [address] [place] [address] Iron deficiency anemia, unspecified iron deficiency anemia type (Primary Dx) Social History Tobacco Use Types Packs/Day Years Used Date Smoking Tobacco: Never Assessed Sex and Gender Information Value Date Recorded Sex Assigned at Not on file Legal Sex Male 9:41 PM PST Gender Identity Not on file Sexual Orientation Not on file documented as of this encounter Plan of Treatment Not on file documented as of this encounter Visit Diagnoses Diagnosis Iron deficiency anemia, unspecified iron deficiency anemia type- Primary documented in this encounter Care Teams Telesales Supervisor Relationship Specialty Start Date End Date Rasheed Kimble [place] [address] [place], [place] [phone] PCP - General 04/13/17 documented as of this encounter
--- OUTSIDE RECORDS SUMMARY | 2025-07-19 16:04 | XMS_ITS | Encounter Summary ---
Author Organization [facility] Address [facility] [address] Care Team Providers Care C Wpf Developer Name Role Phone Unavailable Primary Care Provider Unavailabl e Encounter Details Date Type Department Care Team (Latest Contact Info) Description 03/03/2025 Lab Requisition [place], [place] [address] [place], [place] [address] Eloisa Zamora PA-C [address] [phone] Unspecified severe protein-calorie malnutrition Social History Tobacco [...] *CBC WITH DIFFERENTIAL, LAB GENERATED ORDER STAT 03/03/2025 3:00 PM PDT Unspecified severe protein-calorie malnutrition CBC WITH DIFFERENTIAL STAT 03/03/2025 3:00 PM PDT Unspecified severe protein-calorie malnutrition PHOSPHORUS STAT 03/03/2025 3:00 PM PDT Unspecified severe protein-calorie malnutrition MAGNESIUM STAT 03/03/2025 3:00 PM PDT Unspecified severe protein-calorie malnutrition COMPREHENSIVE METABOLIC PANEL STAT 03/03/2025 3:00 PM PDT Unspecified severe protein-calorie malnutrition documented in this encounter Results * (ABNORMAL) CBC with Differential (03/03/2025 3:00 PM PDT) WBC 10.2 4.0 - 11.0 K/uL 03/03/2025 6:27 PM PDT [facility] 710 RBC 3.81(L) 4.31 - 5.77 M/uL 03/03/2025 6:27 PM PDT [facility] 710 HGB 9.7(L) 13.2 - 17.5 g/dL 03/03/2025 6:27 PM PDT [facility] 710 HCT 32.5(L) 38.9 - 49.9 % 03/03/2025 6:27 PM PDT [facility] 710 MCV 85.3 80.0 - 100.0 fL 03/03/2025 6:27 PM PDT [facility] 710 MCH 25.5(L) 27.8 - 33.8 pg 03/03/2025 6:27 PM PDT [facility] 710 MCHC 29.8(L) 31.5 - 36.5 g/dL 03/03/2025 6:27 PM PDT [facility] 710 RDW 19.6(H) 11.5 - 14.2 % 03/03/2025 6:27 PM PDT [facility] 710 Platelets 552(H) 150 - 400 K/uL 03/03/2025 6:27 PM PDT [facility] 710 MPV 10.6 8.5 - 12.4 fL 03/03/2025 6:27 PM PDT [facility] 710 Neutrophils % 64.4 % 03/03/2025 6:27 PM PDT [facility] 710 Immat Gran % 0.3 % 03/03/2025 6:27 PM PDT [facility] 710 Lymphocytes % 27.6 % 03/03/2025 6:27 PM PDT [facility] 710 Monocytes % 6.0 % 03/03/2025 6:27 PM PDT [facility] 710 Eosinophils % 1.5 % 03/03/2025 6:27 PM PDT [facility] 710 Basophils % 0.2 % 03/03/2025 6:27 PM PDT [facility] 710 Neutrophils # 6.6 1.5 - 8.0 K/uL 03/03/2025 6:27 PM PDT [facility] 710 Immat Gran # 0.0 0.0 - 0.1 K/uL 03/03/2025 6:27 PM PDT [facility] 710 Lymphocytes # 2.8 1.0 - 3.5 K/uL 03/03/2025 6:27 PM PDT [facility] 710 Monocytes # 0.6 0.2 - 1.0 K/uL 03/03/2025 6:27 PM PDT [facility] 710 Eosinophils # 0.2 0.0 - 0.5 K/uL 03/03/2025 6:27 PM PDT [facility] 710 Basophils # 0.0 0.0 - 0.2 K/uL 03/03/2025 6:27 PM PDT [place] [address] nRBC 03/03/2025 6:27 PM PDT [place] [address] Blood 03/03/2025 3:00 PM PDT 03/03/2025 6:22 PM PDT Eloisa Zamora PA-C LAB BLOOD ORDERABLES Final R esult Performing Organization Address City/[facility]/ZIP Co de Phone Number [address] [address] * Phosphorus (NOT [facility]) (03/03/2025 3:00 PM PDT) Phosphorus 3.0 2.4 - 5.1 mg/dL 03/03/2025 6:39 PM PDT [place] [address] Blood 03/03/2025 3:00 PM PDT 03/03/2025 6:22 PM PDT Eloisa Zamora PA-C LAB BLOOD ORDERABLES Final R esult [address] [address] * Magnesium (NOT [facility]) (03/03/2025 3:00 PM PDT) Magnesium 1.9 1.6 - 2.6 mg/dL 03/03/2025 6:39 PM PDT [place] [address] Blood 03/03/2025 3:00 PM PDT 03/03/2025 6:22 PM PDT us Eloisa Zamora PA-C LAB BLOOD ORDERABLES Final R esult [facility] [address] [place] [address] * (ABNORMAL) Comprehensive Metabolic Panel (NOT [facility]) (03/03/2025 3:00 PM PDT) Pathologist [facility] Sodium 133(L) 136 - 145 mmol/L 03/03/2025 6:39 PM PDT [facility] 710 Potassium 4.8 3.5 - 5.1 mmol/L 03/03/2025 6:39 PM PDT [facility] 710 Chloride 102 98 - 111 mmol/L 03/03/2025 6:39 PM PDT [facility] 710 CO2 22 21 - 32 mmol/L 03/03/2025 6:39 PM PDT [facility] 710 Anion Gap 9 3 - 12 mmol/L 03/03/2025 6:39 PM PDT [facility] 710 Glucose 85 70 - 99 mg/dL 03/03/2025 6:39 PM PDT [facility] 710 BUN 23 9 - 23 mg/dL 03/03/2025 6:39 PM PDT [facility] 710 Creatinine 0.65(L) 0.70 - 1.30 mg/dL 03/03/2025 6:39 PM PDT [facility] 710 eGFR (CKD-EPI 2020) 113 >=60 mL/min/1. 73m2 03/03/2025 6:39 PM PDT [facility] 710 Protein, Total 6.8 5.7 - 8.2 g/dL 03/03/2025 6:39 PM PDT [facility] 710 Albumin 2.5(L) 3.4 - 5.0 g/dL 03/03/2025 6:39 PM PDT [facility] 710 Globulin 4.3(H) 2.2 - 3.5 g/dL 03/03/2025 6:39 PM PDT [facility] 710 Calcium 9.1 8.7 - 10.4 mg/dL 03/03/2025 6:39 PM PDT [facility] 710 Bilirubin, Total 0.2(L) 0.3 - 1.2 mg/dL 03/03/2025 6:39 PM PDT [facility] 710 Alkaline Phosphatase 167(H) 38 - 126 U/L 03/03/2025 6:39 PM PDT [place] [address] ALT 40 9 - 54 U/L 03/03/2025 6:39 PM PDT [place] [address] AST 15 13 - 40 U/L 03/03/2025 6:39 PM PDT [place] [address] Blood 03/03/2025 3:00 PM PDT 03/03/2025 6:22 PM PDT us Eloisa Zamora PA-C LAB BLOOD ORDERABLES Final R esult [facility] [address] [place], [place] [phone] documented in this encounter Visit Diagnoses Diagnosis Unspecified severe protein-calorie malnutrition documented in this encounter
--- OUTSIDE RECORDS SUMMARY | 2025-07-19 16:04 | XMS_ITS | Encounter Summary ---
Author Organization [facility] Address [address] [address] Care Team Providers Care Sleeve Separator Name Role Phone Unavailable Primary Care Provider Unavailabl e Encounter Details Date Type Department Care Team (Latest Contact Info) Description 03/02/2025 Lab Requisition [place], [place] [address] [place], [place] [address] Eloisa Zamora PA-C [address] [phone] Unspecified severe protein-calorie malnutrition Social History Tobacco [...] Associated Diagnosis Comments [facility] Routine 03/02/2025 1: 00 PM PDT Unspecified severe protein-calorie malnutrition *CBC WITH DIFFERENTIAL, LAB GENERATED ORDER STAT 03/02/2025 1:00 PM PDT Unspecified severe protein-calorie malnutrition CBC WITH DIFFERENTIAL STAT 03/02/2025 1:00 PM PDT Unspecified severe protein-calorie malnutrition C-REACTIVE PROTEIN STAT 03/02/2025 1: 00 PM PDT Unspecified severe protein-calorie malnutrition PREALBUMIN STAT 03/02/2025 1:00 PM PDT Unspecified severe protein-calorie malnutrition PHOSPHORUS STAT 03/02/2025 1:00 PM PDT Unspecified severe protein-calorie malnutrition MAGNESIUM STAT 03/02/2025 1:00 PM PDT Unspecified severe protein-calorie malnutrition COMPREHENSIVE METABOLIC PANEL STAT 03/02/2025 1:00 PM PDT Unspecified severe protein-calorie malnutrition documented in this encounter Results * (ABNORMAL) CBC with Differential (03/02/2025 1:00 PM PDT) WBC 12.6(H) 4.0 - 11.0 K/uL 03/02/2025 7:59 PM PDT [facility] 710 RBC 4.05(L) 4.31 - 5.77 M/uL 03/02/2025 7:59 PM PDT [facility] 710 HGB 10.3(L) 13.2 - 17.5 g/dL 03/02/2025 7:59 PM PDT [facility] 710 HCT 33.9(L) 38.9 - 49.9 % 03/02/2025 7:59 PM PDT [facility] 710 MCV 83.7 80.0 - 100.0 fL 03/02/2025 7:59 PM PDT [facility] 710 MCH 25.4(L) 27.8 - 33.8 pg 03/02/2025 7:59 PM PDT [facility] 710 MCHC 30.4(L) 31.5 - 36.5 g/dL 03/02/2025 7:59 PM PDT [facility] 710 RDW 19.3(H) 11.5 - 14.2 % 03/02/2025 7:59 PM PDT [facility] 710 Platelets 624(H) 150 - 400 K/uL 03/02/2025 7:59 PM PDT [facility] 710 MPV 10.5 8.5 - 12.4 fL 03/02/2025 7:59 PM PDT [facility] 710 Neutrophils % 72.3 % 03/02/2025 7:59 PM PDT [facility] 710 Immat Gran % 0.5 % 03/02/2025 7:59 PM PDT [facility] 710 Lymphocytes % 21.3 % 03/02/2025 7:59 PM PDT [facility] 710 Monocytes % 4.0 % 03/02/2025 7:59 PM PDT [facility] 710 Eosinophils % 1.7 % 03/02/2025 7:59 PM PDT [facility] 710 Basophils % 0.2 % 03/02/2025 7:59 PM PDT [facility] 710 Neutrophils # 9.1(H) 1.5 - 8.0 K/uL 03/02/2025 7:59 PM PDT [facility] 710 Immat Gran # 0.1 0.0 - 0.1 K/uL 03/02/2025 7:59 PM PDT [facility] 710 Lymphocytes # 2.7 1.0 - 3.5 K/uL 03/02/2025 7:59 PM PDT [facility] 710 Monocytes # 0.5 0.2 - 1.0 K/uL 03/02/2025 7:59 PM PDT [facility] 710 Eosinophils # 0.2 0.0 - 0.5 K/uL 03/02/2025 7:59 PM PDT [facility] 710 Basophils # 0.0 0.0 - 0.2 K/uL 03/02/2025 7:59 PM PDT [facility] 710 nRBC 03/02/2025 7:59 PM PDT [facility] 710 Blood 03/02/2025 1:00 PM PDT 03/02/2025 7:45 PM PDT us Eloisa Zamora PA-C LAB BLOOD ORDERABLES Final R esult [place] [address] [address] [place] [address] * [facility] (03/02/2025 1:00 PM PDT) Pass Through Pass through specimens were routed to [facility] via a packing list. 03/02/2025 11:46 PM PDT [facility] 710 Other 03/02/2025 1:00 PM PDT 03/02/2025 7:45 PM PDT us Eloisa Zamora PA-C LAB BLOOD ORDERABLES Final R esult [address] [id number] * Prealbumin (NOT [facility], [facility]) (03/02/2025 1:00 PM PDT) Prealbumin 26.2 10.0 - 40.0 mg/dL 03/02/2025 8:16 PM PDT [place] [address] Blood 03/02/2025 1:00 PM PDT 03/02/2025 7:45 PM PDT us Eloisa Zamora PA-C LAB BLOOD ORDERABLES Final R esult Performing Organization Address City/[facility]/ZIP Co de Phone Number [facility] [employer] [address] [place] [phone] * Phosphorus (NOT [facility]) (03/02/2025 1:00 PM PDT) Phosphorus 3.6 2.4 - 5.1 mg/dL 03/02/2025 8:16 PM PDT [facility] [employer] [facility] Blood 03/02/2025 1:00 PM PDT 03/02/2025 7:45 PM PDT us Eloisa Zamora PA-C LAB BLOOD ORDERABLES Final R esult Performing Organization Address City/[facility]/ZIP Co de Phone Number [facility] [employer] [address] [place] [phone] * Magnesium (NOT [facility]) (03/02/2025 1:00 PM PDT) Magnesium 2.0 1.6 - 2.6 mg/dL 03/02/2025 8:16 PM PDT [facility] [employer] [facility] Blood 03/02/2025 1:00 PM PDT 03/02/2025 7:45 PM PDT us Eloisa Zamora PA-C LAB BLOOD ORDERABLES Final R esult [place] [address] [address] [place], [place] [phone] * (ABNORMAL) C-Reactive Protein (NOT [facility]) (03/02/2025 1:00 PM PDT) Pathologist [facility] C-Reactive Protein 1.2(H) <1.0 mg/dL 03/02/2025 8:16 PM PDT [facility] 710 Blood 03/02/2025 1:00 PM PDT 03/02/2025 7:45 PM PDT Narrative [facility] 710 - 03/02/2025 8:16 PM PDT Note: CRP is used to indicate the presence of an inflammatory process; hsCRP (high sensitivity CRP) is used for CVD risk assessment. us Eloisa Zamora PA-C LAB BLOOD ORDERABLES Final R esult [place] [address] [address] [place], [place] [phone] * (ABNORMAL) Comprehensive Metabolic Panel (NOT [facility]) (03/02/2025 1:00 PM PDT) Pathologist [facility] Sodium 134(L) 136 - 145 mmol/L 03/02/2025 8:16 PM PDT [place] [address] Potassium 5.1 3.5 - 5.1 mmol/L 03/02/2025 8:16 PM PDT [facility] 710 Chloride 101 98 - 111 mmol/L 03/02/2025 8:16 PM PDT [facility] 710 CO2 21 21 - 32 mmol/L 03/02/2025 8:16 PM PDT [facility] 710 Anion Gap 12 3 - 12 mmol/L 03/02/2025 8:16 PM PDT [facility] 710 Glucose 97 70 - 99 mg/dL 03/02/2025 8:16 PM PDT [facility] 710 BUN 28(H) 9 - 23 mg/dL 03/02/2025 8:16 PM PDT [facility] 710 Creatinine 0.67(L) 0.70 - 1.30 mg/dL 03/02/2025 8:16 PM PDT [facility] 710 eGFR (CKD-EPI 2020) 112 >=60 mL/min/1. 73m2 03/02/2025 8:16 PM PDT [facility] 710 Protein, Total 7.3 5.7 - 8.2 g/dL 03/02/2025 8:16 PM PDT [facility] 710 Albumin 2.6(L) 3.4 - 5.0 g/dL 03/02/2025 8:16 PM PDT [facility] 710 Globulin 4.7(H) 2.2 - 3.5 g/dL 03/02/2025 8:16 PM PDT [facility] 710 Calcium 9.1 8.7 - 10.4 mg/dL 03/02/2025 8:16 PM PDT [facility] 710 Bilirubin, Total 0.2(L) 0.3 - 1.2 mg/dL 03/02/2025 8:16 PM PDT [facility] 710 Alkaline Phosphatase 199(H) 38 - 126 U/L 03/02/2025 8:16 PM PDT [facility] 710 ALT 57(H) 9 - 54 U/L 03/02/2025 8:16 PM PDT [facility] 710 AST 21 13 - 40 U/L 03/02/2025 8:16 PM PDT [facility] 710 Blood 03/02/2025 1:00 PM PDT 03/02/2025 7:45 PM PDT us Eloisa Zamora PA-C LAB BLOOD ORDERABLES Final R esult [place] [address] [address] [place], [place] [phone] documented in this encounter Visit Diagnoses Diagnosis Unspecified severe protein-calorie malnutrition documented in this encounter
--- OUTSIDE RECORDS SUMMARY | 2025-07-19 16:04 | XMS_ITS | Encounter Summary ---
Author Organization [facility] Address [address] [place] [address] Care Team Providers Care Infertility Medical Assistant Name Role Phone Rasheed Kimble Primary Care Provider [phone] Reason for Referral * Outpatient Service (Routine) - Authorized Specialty Diagnoses / Procedures Referred By Elena hood Referred To Contact Orthopedic Surgery Diagnoses Closed fracture of left tibial plateau, initial encounter Procedures REF ORTHO EXTERNAL OFFICE/OUTPATIENT ESTABLISHED MOD MDM 30 MIN Rasheed Gould III [facility] [address] [place] [address] [facility] [address] [place] [address] Referral ID Status Reason Start Date Expiration Date Visits Requested Visits Authorized [id number] Authorized Evaluate and Treat-Surgery if Indicated 10/17/2024 10/17/2025 6 6 Encounter Details Date Type Department Care Team (Late st Contact Info) Description 10/17/2024 Community Orders Non [facility] Provider Rasheed Gould III [facility] [address] [place] [address] Closed fracture of left tibial plateau, initial encounter (Primary Dx) Social History Tobacco Use Types Packs/Day Years Used Date Smoking Tobacco: Never Assessed Sex and Gender Information Value Date Recorded Sex Assigned at Not on file Legal Sex Male 9:41 PM PST Gender Identity Not on file Sexual Orientation Not on file documented as of this encounter Plan of Treatment Not on file documented as of this encounter Visit Diagnoses Diagnosis Closed fracture of left tibial plateau, initial encounter- Primary documented in this encounter Care Teams Infertility Medical Assistant Relationship Specialty Start Date End Date Rasheed Kimble [place] [address] [place] [address] PCP - General 04/13/17 documented as of this encounter
--- OUTSIDE RECORDS SUMMARY | 2025-07-19 16:04 | XMS_ITS | Encounter Summary ---
Author Organization [facility] Address [address] [address] Care Team Providers Care Packager Name Role Phone Unavailable Primary Care Provider Unavailabl e Encounter Details Date Type Department Care Team (Late st Contact Info) Description 06/17/2025 Lab [facility] [address] [place] [address] [place] [address] Eloisa Zamora, PASejalC [address] [id number] Unspecified severe protein-calorie malnutrition Social History Tobacco [...] 11:15 AM PDT Unspecified severe protein-calorie malnutrition documented in this encounter Results * (ABNORMAL) CBC with Differential (06/17/2025 11:15 AM PDT) WBC 8.2 4.0 - 11.0 K/uL 06/17/2025 6:00 PM PDT [facility] RBC 4.44 4.31 - 5.77 M/uL 06/17/2025 6:00 PM PDT [facility] HGB 11.2(L) 13.2 - 17.5 g/dL 06/17/2025 6:00 PM PDT [facility] HCT 34.6(L) 38.9 - 49.9 % 06/17/2025 6:00 PM PDT [facility] MCV 77.9(L) 80.0 - 100.0 fL 06/17/2025 6:[address] [facility] MCH 25.2(L) 27.8 - 33.8 pg 06/17/2025 6:[address] [facility] MCHC 32.4 31.5 - 36.5 g/dL 06/17/2025 6:[address] [facility] RDW 15.6(H) 11.5 - 14.2 % 06/17/2025 6:[address] [facility] Platelets 282 150 - 400 K/uL 06/17/2025 6:[address] [facility] MPV 12.3 8.5 - 12.4 fL 06/17/2025 6:00 PM PDT [facility] Neutrophils % 62.0 % 06/17/2025 6:00 PM PDT [facility] Immat Gran % 0.5 % 06/17/2025 6:00 PM PDT [facility] Lymphocytes % 25.9 % 06/17/2025 6:00 PM PDT [facility] Monocytes % 10.3 % 06/17/2025 6:00 PM PDT [facility] Eosinophils % 1.2 % 06/17/2025 6:00 PM PDT [facility] Basophils % 0.1 % 06/17/2025 6:00 PM PDT [facility] Neutrophils # 5.1 1.5 - 8.0 K/uL 06/17/2025 6:00 PM PDT [facility] Immat Gran # 0.0 0.0 - 0.1 K/uL 06/17/2025 6:00 PM PDT [facility] Lymphocytes # 2.1 1.0 - 3.5 K/uL 06/17/2025 6:00 PM PDT [facility] Monocytes # 0.8 0.2 - 1.0 K/uL 06/17/2025 6:[address] [facility] Eosinophils # 0.1 0.0 - 0.5 K/uL 06/17/2025 6:[address] [facility] Basophils # 0.0 0.0 - 0.2 K/uL 06/17/2025 6:[address] [facility] nRBC 06/17/2025 6:00 PM PDT [facility] Blood 06/17/2025 11:1 5 AM PDT 06/17/2025 5:55 PM PDT us Eloisa Zamora PA-C LAB BLOOD ORDERABLES Final R esult [address] [phone] * Phosphorus (06/17/2025 11:15 AM PDT) Phosphorus 3.7 2.4 - 5.1 mg/dL 06/17/2025 6:10 PM PDT [facility] Blood 06/17/2025 11:1 5 AM PDT 06/17/2025 5:55 PM PDT us Eloisa Zamora PA-C LAB BLOOD ORDERABLES Final R esult Performing Organization Address City/[facility]/ZIP Co de Phone Number [address] [phone] * Magnesium (06/17/2025 11:15 AM PDT) Magnesium 1.8 1.8 - 2.4 mg/dL 06/17/2025 6:10 PM PDT [facility] Blood 06/17/2025 11:1 5 AM PDT 06/17/2025 5:55 PM PDT us Eloisa Zamora PA-C LAB BLOOD ORDERABLES Final R esult [facility] [address] [place] [address] * (ABNORMAL) Comprehensive Metabolic Panel (06/17/2025 11:15 AM PDT) Sodium 134(L) 136 - 145 mmol/L 06/17/2025 6:[address] [facility] Potassium 4.1 3.5 - 5.1 mmol/L 06/17/2025 6:10 PM PDT [facility] Chloride 100 95 - 109 mmol/L 06/17/2025 6:[address] [facility] CO2 27 21 - 32 mmol/L 06/17/2025 6:[address] [facility] Anion Gap 7 3 - 15 mmol/L 06/17/2025 6:[address] [facility] Glucose 112(H) 70 - 99 mg/dL 06/17/2025 6:[address] [facility] BUN 18 7 - 18 mg/dL 06/17/2025 6:[address] [facility] Creatinine 0.99 0.70 - 1.30 mg/dL 06/17/2025 6:[address] [facility] eGFR (CKD-EPI 2020) 91 >=60 mL/min/1. 73m2 06/17/2025 6:[address] [facility] Protein, Total 6.8 6.4 - 8.2 g/dL 06/17/2025 6:[address] [facility] Albumin 2.3(L) 3.4 - 5.0 g/dL 06/17/2025 6:[address] [facility] Globulin 4.5(H) 2.7 - 4.3 g/dL 06/17/2025 6:[address] [facility] Calcium 8.8 8.5 - 10.1 mg/dL 06/17/2025 6:[address] [facility] Bilirubin, Total 0.2 0.1 - 1.2 mg/dL 06/17/2025 6:[address] [facility] Alkaline Phosphatase 208(H) 46 - 116 U/L 06/17/2025 6:[address] [facility] ALT 22 12 - 78 U/L 06/17/2025 6:[address] [facility] AST 17 15 - 41 U/L 06/17/2025 6:10 PM PDT [facility] Blood 06/17/2025 11:1 5 AM PDT 06/17/2025 5:55 PM PDT us Eloisa Zamora PA-C LAB BLOOD ORDERABLES Final R esult [facility] [address] [place] [id number] documented in this encounter Visit Diagnoses Diagnosis Unspecified severe protein-calorie malnutrition documented in this encounter
--- OUTSIDE RECORDS SUMMARY | 2025-07-19 16:04 | XMS_ITS | Encounter Summary ---
Author Organization [facility] Address [address] [place] [address] Care Team Providers Care Regional Intermodal Truck Driver Name Role Phone Rasheed Kimble Primary Care Provider [phone] Reason for Referral * Outpatient Service (Routine) - Authorized Specialty Diagnoses / Procedures Referred By Elena hood Referred To Contact Dermatology Diagnoses Disorder of skin and subcutaneous tissue Procedures REF DERMATOLOGY-EXTERNAL OFFICE/OUTPATIENT ESTABLISHED MOD MDM 30 MIN Rasheed Gould III [facility] [address] [place] [address] [facility] [address] [place] [address] Referral ID Status Reason Start Date Expiration Date Visits Requested Visits Authorized [id number] Authorized Evaluate and Treat-Surgery if Indicated 12/14/2024 12/14/2025 6 6 * Outpatient Service (Routine) - Authorized Specialty Diagnoses / Procedures Referred By Elena hood Referred To Contact Neurology Diagnoses Convulsions, unspecified convulsion type Procedures REF NEUROLOGY - EXTERNAL OFFICE/OUTPATIENT ESTABLISHED MOD [facility] 30 MIN Rasheed Gould III [facility] [address] [place] [address] [facility] [address] [place] [address] Referral ID Status Reason Start Date Expiration Date Visits Requested Visits Authorized [id number] Authorized Evaluate and Treat-Surgery if Indicated 12/14/2024 12/14/2025 6 6 Encounter Details Date Type Department Care Team (Latest Contact Info) Description 12/14/2024 Community Orders Non [facility] Provider Rasheed Gould III [facility] [address] [place] [address] Convulsions, unspecified convulsion type (Primary Dx); Disorder of skin and subcutaneous tissue Social History Tobacco Use Types Packs/Day Years Used Date Smoking Tobacco: Never Assessed Sex and Gender Information Value Date Recorded Sex Assigned at Not on file Legal Sex Male 9:41 PM PST Gender Identity Not on file Sexual Orientation Not on file documented as of this encounter Plan of Treatment Not on file documented as of this encounter Visit Diagnoses Diagnosis Convulsions, unspecified convulsion type- Primary Disorder of skin and subcutaneous tissue Unspecified disorder of skin and subcutaneous tissue documented in this encounter Care Teams Regional Intermodal Truck Driver Relationship Specialty Start Date End Date Rasheed Kimble [address] [address] PCP - General 04/13/17 documented as of this encounter
--- OUTSIDE RECORDS SUMMARY | 2025-07-19 16:05 | XMS_ITS | Clinical Summary ---
Author Organization [facility] Address [address] [place] [address] Care Team Providers Care Senior Principal Process Engineer Name Role Phone Pcp, Outside Primary Care Provider Unavailabl e Allergies Active Allergy Reactions Criticality Noted Date Comments Doxycycline Fever,Skin: Hives,Sk in: Rash 06/02/2024 Rash, hives, fever, diarrhea Medications ascorbic acid 500 MG tablet Take 2 tablets (1,000 mg) by mouth daily. Active calcium citrate 950 (200 Ca) MG tablet Take 1 tablet (200 mg of ELEMENTAL calcium) by mouth daily. Active DULoxetine [address] capsule Take 3 capsules (90 mg) by mouth daily. Takes 60 mg daily Active multivitamin with minerals tablet Take 1 tablet by mouth daily. Active traZODone 100 MG tablet Take 1 tablet (100 mg) by mouth at bedtime as needed for sleep. Active VITAMIN A OR Take 25,000 units by mouth daily. Active tocopherol (Vitamin E) 180 mg (400 unit) capsule Take 1 capsule (180 mg) by mouth daily. Same as 400 units. Active zinc sulfate 220 (50 Zn) MG capsule Take 1 capsule (220 mg) by mouth daily. Same as 50mg zinc Active cholecalciferol 50 mcg (2,000 unit) capsule Take 2 capsules (4,000 units) by mouth daily. Active acetaminophen 500 MG tablet Take 2 tablets (1,000 mg) by mouth every 6 hours. 100 tablet 4 Active methocarbamol 500 MG tablet Take 1 tablet (500 mg) by mouth every 6 hours as needed for muscle spasms. 50 tablet 4 Active oxyCODONE 5 MG tablet Take 1-3 tablets (5-15 mg) by mouth every 4 hours as needed for moderate pain or severe pain. Taper by at least 1-2 tablets each day to decrease risk for dependence and harmful side effects. Do not take with other opioids, alcohol, or sedatives as it may cause excessive drowsiness, confusion and low breathing. 42 tablet 4 Active naltrexone 50 MG tablet Take 1 tablet (50 mg) by mouth daily. 30 tablet 4 Active Active Problems Problem Noted Date Diagnosed Date Open fracture of left tibial plateau 06/02/2024 Type I or II open fracture of left tibial platea u 06/02/2024 Immunizations Immunization Administration Dates Next Due Tdap 06/02/2024 Social History Tobacco Use Types Packs/Day Years Used Date Smoking Tobacco: Never Tobacco Cessation:Counseling Given: Not Answered Alcohol Use Standard Drinks/Week Comments Never 0 (1 standard drink = 0.6 oz pur e alcohol) [facility] Utilities Answer Date Recorded In the past 12 months has th e [employer], oil, or water [employer] threatened to shut off services in your home? No 06/02/2024 Humiliation, Afraid, Rape, and Kick questionnair e Answer Date Recorded Within the last year, have y ou been afraid of your partner or ex-partner? No 06/02/2024 Emotionally Abused Not on file 06/02/2024 Physically Abused Not on file 06/02/2024 Sexually Abused Not on file 06/02/2024 Hunger Vital Sign Answer Date Recorded Within the past 12 months, y ou worried that your food would run out before you got the money to buy more. Never true 06/02/20 24 Ran Out of Food in the Last Year Not on file 06/02/2024 PRAPARE - Transportation Answer Date Re corded In the past 12 months, has l ack of transportation kept you from medical appointments or from getting medications? No 06/02/2024 Lack of Transportation (Non-Medical) Not on file 06/02/2024 Housing Stability Vital Sign Answer Alejandro e Recorded Unable to Pay for Housing in the Last Year Not o n file 06/02/2024 Number of Times Moved in the Last Year Not on fi le 06/02/2024 At any time in the past [address] [facility], were you homeless or living in a retirement (including now)? No 06/02/2024 Sex and Gender Information Value Date Recorded Sex Assigned at Male 06/02/2024 10:54 PM PDT Legal Sex Male 11:23 AM PDT Gender Identity Male 06/02/2024 10:54 PM PDT Sexual Orientation Don't know 06/02/2024 10 :54 PM PDT Last Filed Vital Signs Vital Sign Reading Time Taken Comments Blood Pressure 152/106 07/17/2024 2:00 PM PST Pulse 76 07/17/2024 2:00 PM PST Temperature 36.6 C (97.9 F) 06/26/2024 12:32 PM PDT Respiratory Rate 16 07/17/2024 2:00 PM PST Oxygen Saturation 98% 06/26/2024 12:32 PM PDT Inhaled Oxygen Concentration - - Weight 91.6 kg (202 lb) 07/17/2024 2:00 PM PST Height 180.3 cm (5' 11) 07/17/2024 2:00 PM PST Body Mass Index 28.17 07/17/2024 2:00 PM PST Plan of Treatment Health Maintenance Due Date Last Done Comments Hepatitis C Screening 1971 Prostate Cancer Screening Education 1971 Depression Screening (PHQ-2) 1983 HIV Screening 1986 Hepatitis B Vaccine (1 of 3 - 19+ 3-dose series) 1990 Lipid Disorders Screening 2006 CT Colonography 2016 Colonoscopy 2016 Colorectal Cancer Screening 2016 FIT-DNA 2016 FOBT/FIT 2016 Sigmoidoscopy 2016 Pneumococcal Vaccine: 50+ Years (1 of 1 - PCV) 2021 COVID-19 Vaccine (2024- season) 2025 05/26/2024, 07/22/2023, 01/08/2022, Additional history exists Diabetes Screening 06/24/2028 06/24/2025, 1 , 06/10/2025, Additional history exists DTaP, Tdap and Td Vaccines (3 - Td or Tdap) 06/02/2034 06/02/2024, 04/08/2021 RSV Vaccine (1 - 1-dose 75+ series) 2046 Zoster Vaccine Completed 03/28/2022, 01/08/2022 Influenza Vaccine Completed 05/23/2025, , 07/22/2023, Additional history exists HPV Vaccine Aged Out No longer eligi ble based on patient's age to complete this topic Meningococcal B Vaccine Aged Out No l onger eligible based on patient's age to complete this topic Goals Goal Patient Goal Type Associated Problems Recent Progress Patient-Stated? Author Autogenera bonifacio Goal Care Plan Autogenerated Problem No Malave, Freidelyn [employer] Implanted Type Area Hand Cementer Device Identifier Shelf Expiration Date Model / Serial / Lot Plate Lcp Tibial Periart Left 10h Varangl 177mm Lg Bend - [id number] Implanted:Qty: 1 on 06/04/2024 by Alyx Arriaga MD at [facility] Left: Tibia J [employer]ES ORTHO 02.127.341 / / Screw 3.5mm 56mm Self Tap 02.127.156 - [id number] Implanted:Qty: 1 on 06/04/2024 by Alyx Arriaga MD at [facility] Left: Tibia [employer]ES 02.127.156 / / Screw 3.5mm 60mm Self Tap 02.127.160 - [id number] Implanted:Qty: 1 on 06/04/2024 by Alyx Arriaga MD at [facility] Left: Tibia J [employer]ES 02.127.160 / / Screw 3.5mm 75mm Self Tap 02.127.175 - [id number] Implanted:Qty: 2 on 06/04/2024 by Alyx Arriaga MD at [facility] Left: Tibia J [employer]ES 02.127.175 / / Screw 3.5mm 85mm Self Tap - [id number] Implanted:Qty: 2 on 06/04/2024 by Alyx Arriaga MD at [facility] Left: Tibia [employer] 02.127.185 / / Screw Cortex 3.5mm 26mm Self Tap 204.826 - [id number] Implanted:Qty: 1 on 06/04/2024 by Alyx Arriaga MD at [facility] Left: Tibia [employer] 204.826 / / Screw Cortex 3.5mm 30mm Self Tap 204.830 - [id number] Implanted:Qty: 1 on 06/04/2024 by Alyx Arriaga MD at [facility] Left: Tibia [employer] 204.830 / / Screw Cortex 3.5mm 36mm Self Tap 204.836 - [id number] Implanted:Qty: 1 on 06/04/2024 by Alyx Arriaga MD at [facility] Left: Tibia [employer] 204.836 / / Screw Cortex 3.5mm 70mm Self Tap 204.870 - [id number] Implanted:Qty: 1 on 06/04/2024 by Alyx Arriaga MD at [facility] Left: Tibia J [employer] 204.870 / / Procedures Procedure Name Priority Date/Time Associated Diagnosis Comments BASIC METABOLIC PANEL Routine 06/08/2024 6:56 AM PDT from Last 3 Months or Most Recently Relevant to Health Maintenance Results * (ABNORMAL) Basic Metabolic Panel (06/08/2024 6:56 AM PDT) Sodium 133(L) 135 - 145 meq/L 06/08/2024 7:40 AM [facility] Potassium 3.6 3.6 - 5.2 meq/L 06/08/2024 7:40 AM [facility] Chloride 97(L) 98 - 108 meq/L 06/08/2024 7:40 AM [facility] Carbon Dioxide, Total 23 22 - 32 meq/L 06/08/2024 7:40 AM [facility] Anion Gap 13(H) 4 - 12 06/08/2024 7:40 AM [facility] Glucose 101 62 - 125 mg/dL 06/08/2024 7:40 AM [facility] Urea Nitrogen 8 8 - 21 mg/dL 06/08/2024 7:40 AM [facility] Creatinine 0.91 0.51 - 1.18 mg/dL 06/08/2024 7:40 AM PDT [facility] Calcium 9.3 8.9 - 10.2 mg/dL 06/08/2024 7:40 AM PDT [facility] eGFR by CKD-EPI 2020 >60 >59 mL/min/1.7 3_m2 06/08/2024 7:40 AM PDT [facility] Blood specimen (specimen) 06/08/2024 6:56 AM PDT Ladarius Araujo MD LAB BLOOD ORDERABLES Fin al Result [facility] [place] [facility] [address] [place] [id number], [address] [place] [id number] [facility] [address] [place] [address], [address] [place] [address] from Last 3 Months or Most Recently Relevant to Health Maintenance Additional Health Concerns Active Problems Noted Date Diagnosed Date Autogenerated Problem 03/31/2025 Insurance [facility] [place] [place] [address] [facility] [place] [place] [address] [facility] Advance Directives For more information, please contact: [phone] * Full Code (Latest Code Status on File) Date Activated Date Inactivated Comments 06/02/2024 6:58 PM 06/08/2024 3:56 PM Care Teams Senior Principal Process Engineer Relationship Specialty Start Date End Date Pcp, Outside Identifies patients who have a Non [facility] PCP PCP - General 06/02/24
--- OUTSIDE RECORDS SUMMARY | 2025-07-19 16:05 | XMS_ITS | Encounter Summary ---
Author Organization [facility] Address [address] [place] [address] Care Team Providers Care Lockstitch Binder Name Role Phone Rasheed Kimble Primary Care Provider [phone] Reason for Referral * PT/OT/ST (Routine) - Closed Specialty Diagnoses / Procedures Referred By Elena hood Referred To Contact Physical Therapy Diagnoses Impingement syndrome of right shoulder Procedures REF PHYSICAL THERAPY - EXTERNAL THERA PROC 1+ AREAS EA 15 MIN THERA [place]ERCISES [place] [address] [place] [address] Phone: tel: fax: Therapy, [facility] [address] [place] [address] Referral ID Status Reason Start Date Expiration Date V isits Requested Visits Authorized [id number] Closed Itemized Services 07/12/2022 07/12/2023 15 15 Encounter Details Date Type Department Care Team (Late st Contact Info) Description 07/12/2022 Community Orders Non [facility] [place] [address] [place], [place] [id number] Impingement syndrome of right shoulder (Primary Dx) Social History Tobacco Use Types Packs/Day Years Used Date Smoking Tobacco: Never Assessed Sex and Gender Information Value Date Recorded Sex Assigned at Not on file Legal Sex Male 9:41 PM PST Gender Identity Not on file Sexual Orientation Not on file documented as of this encounter Plan of Treatment Not on file documented as of this encounter Visit Diagnoses Diagnosis Impingement syndrome of right shoulder- Primary Other affections of shoulder region, not elsewhere classified documented in this encounter Care Teams Lockstitch Binder Relationship Specialty Start Date End Date Rasheed Kimble [address] [address] PCP - General 04/13/17 documented as of this encounter
--- OUTSIDE RECORDS SUMMARY | 2025-07-19 16:05 | XMS_ITS | Encounter Summary ---
Author Organization [facility] Address [address] [place] [address] Care Team Providers Care Ball Ender Name Role Phone Rasheed Kimble Primary Care Provider Reason for Referral * Outpatient Service (Routine) - Closed Specialty Diagnoses / Procedures Referred By Elena hood Referred To Contact Podiatry Diagnoses Right foot pain Procedures REF PODIATRY OFFICE VISIT E&M EST PT, MODERATE MDM, 30-39 MINS Huseyin Cam [facility] [address] [place] [address] Phone: tel: fax: [facility] [address] [facility] [address] [place] [address] fax: Referral ID Status Reason Start Date Expiration Date V isits Requested Visits Authorized [id number] Closed Evaluate and Treat-Surgery if Indicated 09/08/2021 09/08/2022 6 6 Encounter Details Date Type Department Care Team (Late st Contact Info) Description 09/08/2021 Community Orders Non [facility] Provider Huseyin Cam [facility] [address] [place] [address] Right foot pain (Primary Dx) Social History Tobacco Use Types Packs/Day Years Used Date Smoking Tobacco: Never Assessed Sex and Gender Information Value Date Recorded Sex Assigned at Not on file Legal Sex Male 9:41 PM PST Gender Identity Not on file Sexual Orientation Not on file documented as of this encounter Plan of Treatment Not on file documented as of this encounter Visit Diagnoses Diagnosis Right foot pain- Primary Pain in limb documented in this encounter Care Teams Ball Ender Relationship Specialty Start Date End Date Rasheed Kimble [address] [address] PCP - General 04/13/17 documented as of this encounter
--- OUTSIDE RECORDS SUMMARY | 2025-07-19 16:05 | XMS_ITS | Encounter Summary ---
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 Procedures REF WOUND CARE - EXTERNAL DEBRIDEMENT, OPEN WOUND, ASSESSMENT, ONGOING CARE, PER SESSION, FIRST 20 SQ CM OR LESS Nancy Funes [address] [address] fax: Referral ID Status Reason Start Date Expiration Date Visits Requested Visits Authorized [id number] Authorized Evaluate and Treat-Surgery if Indicated 07/03/2025 07/03/2026 999 999 Encounter Details Date Type Department Care Team (Late st Contact Info) Description 07/03/2025 Community Orders Non [facility] Provider Nancy Funes 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); Enterocutaneous fistula Social History Tobacco Use Types Packs/Day Years Used Date Smoking Tobacco: Never Assessed Sex and Gender Information Value Date Recorded Sex Assigned at Not on file Legal Sex Male 9:41 PM PST Gender Identity Not on file Sexual Orientation Not on file documented as of this encounter Plan of Treatment Not on file documented as of this encounter Visit Diagnoses Diagnosis Ileostomy in place- Primary Ileostomy status Enterocutaneous fistula Fistula of intestine, excluding rectum and anus documented in this encounter Care Teams Tower Air Traffic Control Specialist Relationship Specialty Start Date End Date Rasheed Kimble [facility] [address] [place], [place] [id number] PCP - General 04/13/17 documented as of this encounter
--- OUTSIDE RECORDS SUMMARY | 2025-07-19 16:05 | XMS_ITS | Encounter Summary ---
Author Organization [facility] Address [address] [place] [address] Care Team Providers Care Beater Lead Name Role Phone Rasheed Kimble Primary Care Provider [phone] Reason for Referral * Outpatient Service (Routine) - Closed Specialty Diagnoses / Procedures Referred By Elena hood Referred To Contact Orthopedic Surgery Diagnoses Right shoulder pain, unspecified chronicity Procedures REF ORTHO EXTERNAL OFFICE VISIT E&M EST PT, MODERATE MDM, 30-39 MINS [facility] [address] [place] [address] Phone: tel: fax: [place] [employer] [facility] [address] [facility] [address] [place] [address] Referral ID Status Reason Start Date Expiration Date V isits Requested Visits Authorized [id number] Closed Evaluate and Treat-Surgery if Indicated 06/30/2022 06/30/2023 6 6 Encounter Details Date Type Department Care Team (Late st Contact Info) Description 06/30/2022 Community Orders Non [facility] Provider [facility] [address] [place] [address] Right shoulder pain, unspecified chronicity (Primary Dx) Social History Tobacco Use Types [...] of this encounter Visit Diagnoses Diagnosis Right shoulder pain, unspecified chronicity- Primary documented in this encounter Care Teams Beater Lead Relationship Specialty Start Date End Date Rasheed Kimble [address] [address] PCP - General 04/13/17 documented as of this encounter
--- OUTSIDE RECORDS SUMMARY | 2025-07-19 16:05 | XMS_ITS | Encounter Summary ---
Author Organization [facility] Address [address] [place] [address] Care Team Providers Care Supervisor Dental Laboratory Name Role Phone Rasheed Kimble Primary Care Provider [phone] Reason for Referral * Radiology (Routine) - Closed Specialty Diagnoses / Procedures Referred By Elena hood Referred To Contact Radiology Diagnoses Pain in toe of right foot Difficulty in walking involving joint Arthritis of right foot Procedures REF RADIOLOGY MAGNETIC RESONANCE ANGIOGRPHY,LOWER [facility] [email or web address] [address] Phone: tel: fax: [address] [address] fax: Referral ID Status Reason Start Date Expiration Date V isits Requested Visits Authorized [id number] Closed Itemized Services 09/23/2021 03/22/2022 4 4 Encounter Details Date Type Department Care Team (Late st Contact Info) Description 09/23/2021 Community Orders Non [facility] Provider Matt Ibar[facility] [id number] [place], [place] [id number] Pain in toe of right foot (Primary Dx); Difficulty in walking involving joint; Arthritis of right foot Social History Tobacco Use Types Packs/Day Years Used Date Smoking Tobacco: Never Assessed Sex and Gender Information Value Date Recorded Sex Assigned at Not on file Legal Sex Male 9:41 PM PST Gender Identity Not on file Sexual Orientation Not on file documented as of this encounter Plan of Treatment Not on file documented as of this encounter Visit Diagnoses Diagnosis Pain in toe of right foot- Primary Pain in limb Difficulty in walking involving joint Difficulty in walking Arthritis of right foot Unspecified arthropathy, ankle and foot documented in this encounter Care Teams Supervisor Dental Laboratory Relationship Specialty Start Date End Date Rasheed Kimble [address] [address] PCP - General 04/13/17 documented as of this encounter
--- OUTSIDE RECORDS SUMMARY | 2025-07-19 16:05 | XMS_ITS | Encounter Summary ---
Author Organization [facility] Address [address] [place] [address] Care Team Providers Care Radio Script Writer Name Role Phone Rasheed Kimble Primary Care Provider [phone] Reason for Referral * PT/OT/ST (Routine) - Closed Specialty Diagnoses / Procedures Referred By Elena t Referred To Contact Physical Therapy Diagnoses Right shoulder pain, unspecified chronicity Procedures REF PHYSICAL THERAPY - EXTERNAL THERA PROC 1+ AREAS EA 15 MIN THERA EXERCISES [facility] [address] [place] [address] Phone: tel: fax: Therapy [facility] [address] [place] [address] Referral ID Status Reason Start Date Expiration Date V isits Requested Visits Authorized [id number] Closed Itemized Services 05/27/2022 05/27/2023 15 15 Encounter Details Date Type Department Care Team (Late st Contact Info) Description 05/27/2022 Community Orders Non [facility] Provider [facility]use[facility] [address] [place] [address] Right shoulder pain, unspecified chronicity (Primary Dx) [...] Primary documented in this encounter Care Teams Radio Script Writer Relationship Specialty Start Date End Date Rasheed Kimble [address] [address] PCP - General 04/13/17 documented as of this encounter
--- OUTSIDE RECORDS SUMMARY | 2025-07-19 16:05 | XMS_ITS | Encounter Summary ---
Author Organization [facility] Address [address] [place] [address] Care Team Providers Care Screen Cutter And Trimmer Name Role Phone Rasheed Kimble Primary Care Provider [phone] Encounter Details Date Type Department Care Team (Late st Contact Info) Description 05/29/2025 Orders Only Care Management [address], [place] [address] [place] [address] [address] Social History Tobacco Use Types Packs/Day Years Used Date Smoking Tobacco: Never Assessed Sex and Gender Information Value Date Recorded Sex Assigned at Not on file Legal Sex Male 9:41 PM PST Gender Identity Not on file Sexual Orientation Not on file documented as of this encounter Plan of Treatment Not on file documented as of this encounter Visit Diagnoses Not on filedocumented in this encounter Care Teams Screen Cutter And Trimmer Relationship Specialty Start Date End Date Rasheed Kimble [address] [address] PCP - General 04/13/17 documented as of this encounter
--- OUTSIDE RECORDS SUMMARY | 2025-07-19 16:05 | XMS_ITS | Encounter Summary ---
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 Procedures REF RADIOLOGY CT ABD & PELVIS W/O CONTRST 1+ BODY Sushma Dye [facility]G [facility] [address] [place] [address] [facility] [address] [address] [place] [address] Referral ID Status Reason Start Date Expiration Date V isits Requested Visits Authorized [id number] Denied Itemized Services 07/10/2025 07/10/2025 4 0 * Radiology (Urgent) - Denied Specialty Diagnoses / Procedures Referred By Contac t Referred To Contact Radiology Diagnoses 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 Procedures REF RADIOLOGY CT ABD & PELVIS W/O CONTRST 1+ BODY Sushma Dye PMG [facility] [address] [place] [address] [facility] [address] [place] [address] Referral ID Status Reason Start Date Expiration Date V isits Requested Visits Authorized [id number] Denied Itemized Services 07/09/2025 01/09/2026 4 0 Encounter Details Date Type Department Care Team (Late st Contact Info) Description 07/09/2025 Community Orders Non [facility] Provider Sushma Hope PMG [facility] [address] [place] 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); Enteroenteric fistula Social History Tobacco Use Types Packs/Day [...] Diagnosis Ileostomy in place- Primary Ileostomy status Enteroenteric fistula Fistula of intestine, excluding rectum and anus documented in this encounter Care Teams Vault Service Mechanic Relationship Specialty Start Date End Date Rasheed Kimble [address] [address] PCP - General 04/13/17 documented as of this encounter
--- OUTSIDE RECORDS SUMMARY | 2025-07-19 16:05 | XMS_ITS | Encounter Summary ---
Author Organization [facility] Address [address] [place] [address] Care Team Providers Care Telemarketing Agent Name Role Phone Rasheed Kimble Primary Care Provider [phone] Encounter Details Date Type Department Care Team (Late st Contact Info) Description 07/03/2025 Community Orders Non [facility] Provider Meka Pacheco PMG [facility] [address] [place] [address] Social History Tobacco Use Types Packs/Day Years [...] on filedocumented in this encounter Care Teams Telemarketing Agent Relationship Specialty Start Date End Date Rasheed Kimble [address] [address] PCP - General 04/13/17 documented as of this encounter
--- OUTSIDE RECORDS SUMMARY | 2025-07-19 16:05 | XMS_ITS | Encounter Summary ---
Author Organization [facility] Address [address] [place] [address] Care Team Providers Care Green Pipefitter Name Role Phone Rasheed Kimble Primary Care Provider [phone] Reason for Referral * Radiology (Urgent) - Authorized Specialty Diagnoses / Procedures Referred By Elena hood Referred To Contact Radiology Diagnoses Postoperative intestinal obstruction, unspecified whether partial or complete Intestinal fistula Procedures REF RADIOLOGY CT ABD & PELVIS W/O CONTRST 1+ BODY REGNS Rasheed Gould III [employer] [facility] [address] [place] [address] [facility] [address] [address] [place] [address] Referral ID Status Reason Start Date Expiration Date Visits Requested Visits Authorized [id number] Authorized Itemized Services 05/08/2025 11/05/2025 4 4 Encounter Details Date Type Department Care Team (Latest Contact Info) Description 05/08/2025 Community Orders Non [facility] Provider Rasheed Gould III [employer] [facility] [address] [place] [address] Postoperative intestinal obstruction, unspecified whether partial or complete (Primary Dx); Intestinal fistula Social History Tobacco Use Types Packs/Day Years Used Date Smoking Tobacco: Never Assessed Sex and Gender Information Value Date Recorded Sex Assigned at Not on file Legal Sex Male 9:41 PM PST Gender Identity Not on file Sexual Orientation Not on file documented as of this encounter Plan of Treatment Not on file documented as of this encounter Visit Diagnoses Diagnosis Postoperative intestinal obstruction, unspecified whether partial or complete- Primary Intestinal fistula Fistula of intestine, excluding rectum and anus documented in this encounter Care Teams Green Pipefitter Relationship Specialty Start Date End Date Rasheed Kimble NPI: [id number] [place] [address] [place] [address] PCP - General 04/13/17 documented as of this encounter
--- OUTSIDE RECORDS SUMMARY | 2025-07-19 16:06 | XMS_ITS | Encounter Summary ---
Author Organization [facility] Address [address] [place] [address] Care Team Providers Care Store Clerk Checker Name Role Phone Rasheed Kimble Primary Care Provider [phone] Encounter Details Date Type Department Care Team (Late st Contact Info) Description 07/11/2025 Notes Encounter (No LOS) [facility] [address] [place] [address] Nick Ayeshabryson Sánchez, DO [address] [place] [address] Social History Tobacco Use Types Packs/Day Years Used Date Smoking Tobacco: Never Assessed Sex and Gender Information Value Date Recorded Sex Assigned at Not on file Legal Sex Male 9:41 PM PST Gender Identity Not on file Sexual Orientation Not on file documented as of this encounter Progress Notes * Ayesha Romero, - 07/11/2025 3:08 PM PST [facility] Advanced Care at Home Initial Evaluation Note Monserrat Paz : 1970 PCP: Rasheed Kimble (Inactive) Patient Identifier: Monserrat Paz is a 54 year old male Initial Evaluation and Clinical Stability Tool Called to evaluate patient by:: Hospitalist Patient Class is:: Emergency/Advanced Urgent Care Patient is currently at:: [facility] Should the patient be screened for Clinical Stability?: Yes Is there diagnostic uncertainty that the patient has an eligible condition for the Advanced Care atHome program? : No Is an advanced diagnostic likely to be required during this admission?: No Is an advanced therapeutic likely to be required during this admission?: No Are higher acuity medical services likely to be required during this admission?: No Patient meets InterQual/[place] inpatient level of care?: Yes How did the patient meet inpatient level of care : multifocal PNA If the patient is enrolled in hospice, are they willing to revoke hospice to enroll in [facility] program?: N/A Clinical Stability Screen Total Score: 0 Did the patient pass this Clinical Stability screen: Yes Ayesha Romero DO documented in this encounter Plan of Treatment Not on file documented as of this encounter Visit Diagnoses Not on filedocumented in this encounter Care Teams Store Clerk Checker Relationship Specialty Start Date End Date Rasheed Kimble [address] [address] PCP - General 04/13/17 documented as of this encounter
--- OUTSIDE RECORDS SUMMARY | 2025-07-19 16:06 | XMS_ITS | Encounter Summary ---
Author Organization Formerly [facility] Address [address] [place] [address] Care Team Providers Care Dye Maker Name Role Phone Pcp, None Selected Primary Care Provider Unavail able Encounter Details Date Type Department Care Team (Late st Contact Info) Description 07/08/2025 Lab Requisition [facility] [address] [place], [place] [id number] [facility] [address] [facility] [address] [place], [place] [id number] Unspecified infectious disease; Peritoneal abscess (CMS/HCC); Unspecified severe protein-calorie malnutrition Social History Tobacco Use Types Packs/Day Years Used Date Smoking Tobacco: Never Smokeless Tobacco: Current Comments:1/3 can Years used: 31 Alcohol Use Standard Drinks/Week Comments Not Currently 0 (1 standard drink = 0.6 oz pur e alcohol) Sex and Gender Information Value Date Recorded Sex Assigned at Not on file Legal Sex Male 7:34 PM PST Gender Identity Not on file Sexual Orientation Not on file documented as of this encounter Plan of Treatment Not on file documented as of this encounter Procedures Procedure Name Priority Date/Time Associated Diagnosis Comments COMPLETE BLOOD COUNT WITH DIFF RESULT Routine 07/08/2025 1:28 PM PST Unspecified infectious disease Peritoneal abscess (CMS/HCC) Unspecified severe protein-calorie malnutrition COMPLETE BLOOD COUNT WITH DIFF Routine 07/08/2025 1:28 PM PST Unspecified infectious disease Peritoneal abscess (CMS/HCC) Unspecified severe protein-calorie malnutrition C-REACTIVE PROTEIN Routine 07/08/2025 1: 28 PM PST Unspecified infectious disease Peritoneal abscess (CMS/HCC) Unspecified severe protein-calorie malnutrition TRIGLYCERIDES Routine 07/08/2025 1:28 PM PST Unspecified infectious disease Peritoneal abscess (CMS/HCC) Unspecified severe protein-calorie malnutrition PREALBUMIN Routine 07/08/2025 1:28 PM PST Unspecified infectious disease Peritoneal abscess (CMS/HCC) Unspecified severe protein-calorie malnutrition PHOSPHORUS Routine 07/08/2025 1:28 PM PST Unspecified infectious disease Peritoneal abscess (CMS/HCC) Unspecified severe protein-calorie malnutrition MAGNESIUM Routine 07/08/2025 1:28 PM PST Unspecified infectious disease Peritoneal abscess (CMS/HCC) Unspecified severe protein-calorie malnutrition COMPREHENSIVE METABOLIC PANEL Routine 07/08/2025 1:28 PM PST Unspecified infectious disease Peritoneal abscess (CMS/HCC) Unspecified severe protein-calorie malnutrition documented in this encounter Results * (ABNORMAL) Complete blood count with diff (07/08/2025 1:28 PM PST) WBC Auto 10.1 3.8 - 10.1 x10e3/uL 07/08/2025 4:48 PM [facility] RBC 4.42 4.40 - 5.80 x10e6/uL 07/08/2025 4:48 PM [facility] Hemoglobin 10.5(L) 13.8 - 17.2 g/dL 07/08/2025 4:48 PM [facility] Hematocrit 33.6(L) 41.0 - 50.0 % 07/08/2025 4:48 PM [facility] MCV 76(L) 81 - 100 fL 07/08/2025 4:48 PM [facility] MCH 23.8(L) 27.0 - 35.0 pg 07/08/2025 4:48 PM [facility] MCHC 31.3(L) 32.0 - 37.0 g/dL 07/08/2025 4:48 PM [facility] RDW 15.3 12.3 - 15.4 % 07/08/2025 4:48 PM [facility] Platelets 461(H) 150 - 400 x10e3/uL 07/08/2025 4:48 PM [facility] MPV 11.6(H) 7.4 - 10.4 fL 07/08/2025 4:48 PM [facility] NRBC % 0 0 /100 WBCs 07/08/2025 4:48 PM [facility] Abs. NRBC 0.0 x10e3/uL 07/08/2025 4:48 PM [facility] % Neutrophils 64 % 07/08/2025 4:48 PM [facility] % Lymphocytes 22 % 07/08/2025 4:48 PM [facility] % Monocytes 11 % 07/08/2025 4:48 PM [facility] % Eosinophils 2 % 07/08/2025 4:48 PM [facility] % Basophils 0 % 07/08/2025 4:48 PM [facility] Abs. Neutrophils 6.4 1.6 - 6.9 x10e3/uL 07/08/2025 4:48 PM [facility] Abs. Lymphocytes 2.2 1.1 - 4.8 x10e3/uL 07/08/2025 4:48 PM [facility] Abs. Monocytes 1.1(H) 0.0 - 1.0 x10e3/uL 07/08/2025 4:48 PM [facility] Abs. Eosinophils 0.2 0.0 - 0.5 x10e3/uL 07/08/2025 4:48 PM [facility] Abs. Basophils 0.0 0.0 - 0.4 x10e3/uL 07/08/2025 4:48 PM [facility] Abs. Neutrophils (Auto) 6,400.0 1,600.0 - 6,900.0 /uL 07/08/2025 4:48 PM [facility] Blood Venous blood / Unknown Venipuncture / Unknown 07/08/2025 1:28 PM PST 07/08/2025 4:21 PM PST [facility] BLOOD ORDERABLES Final Result Performing Organization Address [facility]/ZIP Co de Phone Number [facility] [address] [place] [address], * (ABNORMAL) Prealbumin (07/08/2025 1:28 PM PST) [facility] Prealbumin, Serum/Plasma 16(L) 18 - 45 mg/dL LAB CHEMISTRY METHOD 07/08/2025 4:53 PM [facility] Blood Venous blood / Unknown Venipuncture / Unknown 07/08/2025 1:28 PM PST 07/08/2025 4:18 PM PST [facility] LAB BLOOD ORDERABLES Final Result Performing Organization Address [facility] Co de Phone Number [facility] [address] [place] [address], [place] [phone] * Triglycerides (07/08/2025 1:28 PM PST) [facility] Triglycerides Level, Serum/Plasma 60 <150 (NCEP reference range for fasting specimens) mg/dL LAB CHEMISTRY METHOD 07/08/2025 4:49 PM [facility] Blood Venous blood / Unknown Venipuncture / Unknown 07/08/2025 1:28 PM PST 07/08/2025 4:18 PM PST [facility] BLOOD ORDERABLES Final Result Performing Organization Address [facility] Co de Phone Number [facility] [address] [place] [address], * Phosphorus (07/08/2025 1:28 PM PST) [facility] Phosphorus, Serum/Plasma 3.4 2.5 - 4.5 mg/dL LAB CHEMISTRY METHOD 07/08/2025 4:49 PM [facility] Blood Venous blood / Unknown Venipuncture / Unknown 07/08/2025 1:28 PM PST 07/08/2025 4:18 PM PST [facility] BLOOD ORDERABLES Final Result Performing Organization Address City/[facility]/ZIP Co de Phone Number [facility] [address] [place] [address], * Magnesium (07/08/2025 1:28 PM PST) [facility] Magnesium, Serum/Plasma 2.0 1.6 - 2.4 mg/dL LAB CHEMISTRY METHOD 07/08/2025 4:49 PM [facility] Blood Venous blood / Unknown Venipuncture / Unknown 07/08/2025 1:28 PM PST 07/08/2025 4:18 PM PST [facility] BLOOD ORDERABLES Final Result Performing Organization Address [facility] Co de Phone Number [facility] [address] [place] [address], * (ABNORMAL) C-reactive protein (07/08/2025 1:28 PM PST) [facility] CRP, Serum/Plasma (mg/dL) 6.3(H) <1.0 mg/dL LAB CHEMISTRY METHOD 07/08/2025 4:49 PM [facility] Blood Venous blood / Unknown Venipuncture / Unknown 07/08/2025 1:28 PM PST 07/08/2025 4:18 PM PST [facility] BLOOD ORDERABLES Final Result Performing Organization Address City/[facility]/ZIP Co de Phone Number [facility] [address] [place] [address], * (ABNORMAL) Comprehensive Metabolic Panel (07/08/2025 1:28 PM PST) [facility] Sodium, Serum/Plasma 137 135 - 145 mmol/L LAB CHEMISTRY METHOD 07/08/2025 4:49 PM [facility] Potassium, Serum/Plasma 3.8 3.5 - 5.2 mmol/L LAB CHEMISTRY METHOD 07/08/2025 4:49 PM [facility] Chloride, Serum/Plasma 103 98 - 107 mmol/L LAB CHEMISTRY METHOD 07/08/2025 4:49 PM [facility] CO2, Serum/Plasma 21(L) 22 - 30 mmol/L LAB CHEMISTRY METHOD 07/08/2025 4:49 PM [facility] Anion Gap, Serum/Plasma 13(H) 3 - 11 mmol/L 07/08/2025 4:49 PM [facility] Urea Nitrogen, Serum/Plasma 16.1 6.0 - 24.0 mg/dL LAB CHEMISTRY METHOD 07/08/2025 4:49 PM [facility] Creatinine, Serum/Plasma 0.75(L) 0.76 - 1.27 mg/dL LAB CHEMISTRY METHOD 07/08/2025 4:49 PM [facility] Glucose, Serum/Plasma 66 65 - 99 mg/dL LAB CHEMISTRY METHOD 07/08/2025 4:49 PM [facility] Calcium, Serum/Plasma 9.2 8.5 - 10.1 mg/dL LAB CHEMISTRY METHOD 07/08/2025 4:49 PM [facility] AST, Serum/Plasma 24 17 - 59 U/L LAB CHEMISTRY METHOD 07/08/2025 4:49 PM [facility] ALT, Serum/Plasma 22 <50 U/L LAB CHEMISTRY METHOD 07/08/2025 4:49 PM [facility] Alkaline Phosphatase, Serum/Plasma 173(H) 25 - 150 U/L LAB CHEMISTRY METHOD 07/08/2025 4:49 PM [facility] Total Protein, Serum/Plasma 7.3 6.3 - 8.2 g/dL LAB CHEMISTRY METHOD 07/08/2025 4:49 PM [facility] eGFR, Serum/Plasma (CKD-EPI 2020) 108 >60 (CKD-EPI 2020) mL/min/1. 73 m2 07/08/2025 4:49 PM [facility] Comment: eGFR calculation has been updated by recommendation of the National Kidney Foundation (NKF) without the race variable. This change was made on November 15, 2022 Interpretation for GFR in Chronic Kidney Disease can be viewed below. Albumin, Serum/Plasma 3.3(L) 3.4 - 5.0 g/dL LAB CHEMISTRY METHOD 07/08/2025 4:49 PM [facility] Bilirubin, Total, Serum/Plasma <0.90 0.2 - 1.3 mg/dL LAB CHEMISTRY METHOD 07/08/2025 4:49 PM [facility] BUN/Creatinine Ratio, Serum/Plasma 21.5 6.0 - 24.0 07/08/2025 4:49 PM [facility] Blood Venous blood / Unknown Venipuncture / Unknown 07/08/2025 1:28 PM PST 07/08/2025 4:18 PM [facility] - 07/08/2025 4:49 PM [facility] Interpretive Data The estimated glomerular filtration rate (eGFR) was calculated using the 2020 CKD-EPI eGFR creatinine equation, which does not include race as a factor. This equation is validated in individuals 18 years of age and older. Accurate estimation of GFR requires stable day-to-day creatinine. Creatinine-based eGFR is less accurate in patients with extremes of muscle mass, restriction of dietary protein, ingestion of creatine, extra-renal metabolism of creatinine, or treatment with medications that affect renal tubular creatinine secretion. The eGFR is normalized to a body surface area of 1.73 square meters. GFR Categories in Chronic Kidney Disease (CKD) GFR Category GFR (mL/min/1.73 square meters) Interpretation G1 90 or greater Normal to high* G2 60-89 Mild decrease* G3a 45-59 Mild to moderate decrease G3b 30-44 Moderate to severe decrease G4 15-29 Severe decrease G5 14 or less Kidney failure *In the absence of evidence of kidney damage, neither GFR category G1 nor G2 fulfill the criteria for CKD (Kidney Int Suppl 2013;3:1-150) Kelsie Quiroz [facility] BLOOD ORDERABLES Final Result [facility] [address] [place] [address], documented in this encounter Visit Diagnoses Diagnosis Unspecified infectious disease Peritoneal abscess (CMS/HCC) Peritoneal abscess Unspecified severe protein-calorie malnutrition documented in this encounter Care Teams Dye Maker Relationship Specialty Start Date End Date Pcp, None Selected PCP - General 12/13/24 documented as of this encounter
--- OUTSIDE RECORDS SUMMARY | 2025-07-19 16:06 | XMS_ITS | Encounter Summary ---
Author Organization [facility] Address [address] [place] [address] Care Team Providers Care Process Improvement Consultant Name Role Phone Rasheed Kimble Primary Care Provider [phone] Reason for Referral * Outpatient Service (Routine) - Authorized Specialty Diagnoses / Procedures Referred By Elena hood Referred To Contact Urology Diagnoses Decreased libido Procedures REF UROLOGY - EXTERNAL OFFICE/OUTPATIENT ESTABLISHED MOD MDM 30 MIN Rasheed Gould III [facility] [address] [place] [address] [facility] [address] [address] [place] [address] Referral ID Status Reason Start Date Expiration Date Visits Requested Visits Authorized [id number] Authorized Evaluate and Treat-Surgery if Indicated 05/23/2024 05/23/2025 6 6 Encounter Details Date Type Department Care Team (Late st Contact Info) Description 05/23/2024 Community Orders Non [facility] Provider [facility] [address] [place] [address] Decreased libido (Primary Dx) Social History Tobacco Use Types Packs/Day Years Used Date Smoking Tobacco: Never Assessed Sex and Gender Information Value Date Recorded Sex Assigned at Not on file Legal Sex Male 9:41 PM PST Gender Identity Not on file Sexual Orientation Not on file documented as of this encounter Plan of Treatment Not on file documented as of this encounter Visit Diagnoses Diagnosis Decreased libido- Primary documented in this encounter Care Teams Process Improvement Consultant Relationship Specialty Start Date End Date Rasheed Kimble [facility] [address] [place] [address] PCP - General 04/13/17 documented as of this encounter
--- OUTSIDE RECORDS SUMMARY | 2025-07-19 16:06 | XMS_ITS | Encounter Summary ---
Author Organization [facility] Address [address] [place] [address] Care Team Providers Care Slate Trimmer Name Role Phone Rasheed Kimble Primary Care Provider [phone] Reason for Referral * Pharmacy/Infusion (Routine) - Authorized Specialty Diagnoses / Procedures Referred By Elena hood Referred To Contact Infusion Services Diagnoses Iron deficiency anemia, unspecified iron deficiency anemia type Procedures REF INFUSION CAM PRE-AUTHORIZATION INJ SODIM FERRIC GLUCONATE CMPLX SUCROSE 12.5 MG Rasheed Gould III [facility] [address] [place] [address] [facility] [address] [address] [place] [address] Referral ID Status Reason Start Date Expiration Date Visits Requested Visits Authorized [id number] Authorized Itemized Services 05/16/2024 05/16/[phone] Encounter Details Date Type Department Care Team (Late st Contact Info) Description 05/16/2024 Community Orders Non [facility] Provider Rasheed Gould III [facility] [address] [place] [address] Iron deficiency anemia, unspecified iron deficiency anemia [...] Primary documented in this encounter Care Teams Slate Trimmer Relationship Specialty Start Date End Date Rasheed Kimble [place] [address] [place] [address] PCP - General 04/13/17 documented as of this encounter
--- OUTSIDE RECORDS SUMMARY | 2025-07-19 16:06 | XMS_ITS | Clinical Summary ---
Author Organization [facility] Address [address] [place] [address] Care Team Providers Care Rolling Machine Operator Automatic Name Role Phone Rasheed Kimble Primary Care Provider [phone] Source Comments NOTE: The information displayed by Care Everywhere is extracted from the complete medical record and may not identify all current or past patient conditions.[facility] Allergies No known active allergies Medications traZODone (DESYREL) 50 mg tablet Take 1-3 tablets (50-150 mg) by mouth at bedtime as needed at 9:00 pm 45 tablet 10/03/2024 2:58 PM PST 5 Active ondansetron (ZOFRAN ODT) 8 mg disintegrating tablet Dissolve 1 tablet (8 mg) on the tongue every 6 hours as needed 5 tablet 10/03/2024 2:58 PM PST 5 Active levETIRAcetam (KEPPRA) 500 mg tablet Take 2 tablets (1,000 mg) by mouth 2 times daily at 7:00 am and 7:00 pm for 15 days 66 tablet 10/03/2024 2:58 PM PST 5 Active hydrOXYzine pamoate (VISTARIL) 50 mg capsule Take 1-2 capsules (50-100 mg) by mouth 4 times daily as needed at 7:00 am, 1:00 pm, 5:00 pm, and 9:00 pm 60 capsule 10/03/2024 2:58 PM PST 5 Active gabapentin (NEURONTIN) 300 mg capsule Take 1-2 capsules (300-600 mg) by mouth 4 times daily as needed at 7:00 am, 1:00 pm, 5:00 pm, and 10:00 pm 90 capsule 10/03/2024 2:58 PM PST 5 Active cloNIDine HCL (CATAPRES) 0.1 mg tablet Take 1 tablet (0.1 mg) by mouth every 6 hours as needed 120 tablet 10/12/2024 1:51 PM PST 5 Active hydrOXYzine pamoate (VISTARIL) 50 mg capsule Take 1-2 capsules (50-100 mg) by mouth 4 times daily as needed at 7:00 am, 1:00 pm, 5:00 pm, and 9:00 pm 180 capsule 10/12/2024 1:51 PM PST 5 Active traZODone (DESYREL) 50 mg tablet Take 1-3 tablets (50-150 mg) by mouth at bedtime 90 tablet 10/15/2024 4:44 PM PST 5 Active naltrexone (REVIA) 50 mg tablet 1 tablet oral once a day (am) at 7:00 am 30 tablet 10/17/2024 2:47 PM PST 5 Active QUEtiapine (SEROQUEL) 50 mg tablet Take 1-3 tablets (50-150 mg) by mouth at bedtime at 9 pm. 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); Enterocutaneous fistula 07/03/2025 Community Orders Non [facility] Provider Meka Pacheco 05/29/2025 Orders Only Care Management [address] [id number] Earl Sterling RN 05/08/2025 Community Orders Non [facility] Provider Rasheed Gould III Postoperative intestinal obstruction, unspecified whether partial or complete (Primary Dx); Intestinal fistula 04/23/2025 Telephone Care Management [address] [place] [address] Anna Jacobo LPN Post Hospital Discharge Phone Call (4 Pillars) from Last 3 Months Immunizations Immunization Administration Dates Next Due *CELL BASED SYRINGE* FluCELV AX (6+ mos) QUAD 06/11/2022,06/07/2019 *CELL BASED SYRINGE* FluCELV AX (6+ mos) TRI 05/26/2024 *STANDARD DOSE SYRINGE* (FluARIX,FluLAVAL,FluZONE) (6+ mos) TRI 05/23/2025 *STANDARD DOSE SYRINGE* (FluLAVAL,FluZONE,FluARIX or AFLURIA) (6+ mos) QUAD 07/22/2023,07/10/2021,07/27/2020,2017 Herpes Zoster (SHINGRIX) 03/28/2022,01/08/2022 Moderna SARS-CoV-2 Vaccinati on (12 + y/o) (SPIKEVAX) 05/26/2024,07/22/2023 Moderna SARS-CoV-2 Vaccinati on (12 + y/o)(SANDWICH ARTIST) 01/08/2022,07/10/2021,10/22/2020,2020 Tdap (Tetanus, Diphtheria, a cellular Pertussis) 06/02/2024,04/08/2021 Social History Tobacco Use Types Packs/Day Years Used Date Smoking Tobacco: Never Assessed Sex and Gender Information Value Date Recorded Sex Assigned at Not on file Legal Sex Male 9:41 PM PST Gender Identity Not on file Sexual Orientation Not on file Plan of Treatment Health Maintenance Due Date Last Done Comments Blood Pressure Check 1971 Adult HIV Screen (1-time) 1986 Hep C Screening (1-time) 1989 COL-S FIT 2016 Depression F/U: Green Mental Health Monitoring Tool 01/30/2025 10/02/2024 Vaccine: COVID-19 ( season) 2025 05/26/2024, 07/22/2023, 01/08/2022, Additional history exists Vaccine: [id number]-Ut (3 - T d or Tdap) 06/02/2034 06/02/2024, 04/08/2021 Vaccine: Shingles Completed 03/28/2022, 01/08/2022 FLU VACCINE Completed 05/23/2025, 04/30, 07/22/2023, Additional history exists Insurance [facility] Advance Directives For more information, please contact: [phone] Documents on File Type Date Recorded Patient Developmental Specialist Expl anation Durable Power of Pond Scaler Advance Directive and Living Will Care Teams Rolling Machine Operator Automatic Relationship Specialty Start Date End Date Rasheed Kimble [place] [address] [place] [address] PCP - General 04/13/17
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
--- OUTSIDE RECORDS SUMMARY | 2025-07-19 16:07 | XMS_ITS | Encounter Summary ---
Author Organization [facility] Address [address] [place] [address] Care Team Providers Care Green Hide Inspector Name Role Phone Rasheed Kimble Primary Care Provider [phone] Reason for Referral * Outpatient Service (Routine) - Authorized Specialty Diagnoses / Procedures Referred By Elena hood Referred To Contact Podiatry Diagnoses Right foot pain Procedures REF PODIATRY - EXTERNAL OFFICE/OUTPATIENT ESTABLISHED MOD MDM 30 MIN Rasheed Gould III [facility] [address] [place] [address] [facility] [address] [facility] [address] [place] [address] fax: Referral ID Status Reason Start Date Expiration Date Visits Requested Visits Authorized [id number] Authorized Evaluate and Treat-Surgery if Indicated 04/10/2024 04/10/2025 6 6 * Outpatient Service (Routine) - Authorized Specialty Diagnoses / Procedures Referred By Elena hood Referred To Contact General Surgery Diagnoses Mass of soft tissue of left upper extremity Procedures REF GENERAL SURGERY - EXTERNAL OFFICE/OUTPATIENT ESTABLISHED MOD MDM 30 MIN Rasheed Gould III [facility] [address] [place] [address] [facility] [address] [address] [place] [address] Referral ID Status Reason Start Date Expiration Date Visits Requested Visits Authorized [id number] Authorized Evaluate and Treat-Surgery if Indicated 04/10/2024 04/10/2025 6 6 Encounter Details Date Type Department Care Team (Late st Contact Info) Description 04/10/2024 Community Orders Non [facility] Provider Rasheed Gould III [facility] [address] [place] [address] Mass of soft tissue of left upper extremity (Primary Dx); Right foot pain Social History Tobacco Use Types Packs/Day Years Used Date Smoking Tobacco: Never Assessed Sex and Gender Information Value Date Recorded Sex Assigned at Not on file Legal Sex Male 9:41 PM PST Gender Identity Not on file Sexual Orientation Not on file documented as of this encounter Plan of Treatment Not on file documented as of this encounter Visit Diagnoses Diagnosis Mass of soft tissue of left upper extremity- Primary Right foot pain Pain in limb documented in this encounter Care Teams Green Hide Inspector Relationship Specialty Start Date End Date Rasheed Kimble [place] [address] [place] [address] PCP - General 04/13/17 documented as of this encounter
--- OUTSIDE RECORDS SUMMARY | 2025-07-19 16:07 | XMS_ITS | Encounter Summary ---
Author Organization [facility] Address [address] [place] [address] Care Team Providers Care Timber Sizer Operator Name Role Phone Rasheed Kimble Primary Care Provider [phone] Reason for Referral * Pharmacy/Infusion (Routine) - Authorized Specialty Diagnoses / Procedures Referred By Elena hood Referred To Contact Infusion Services Diagnoses Iron deficiency anemia, unspecified iron deficiency anemia type Procedures REF INFUSION CAM PRE-AUTHORIZATION IRON DEXTRAN INJ 50 MG Rasheed oGuld III [facility] [address] [place] [address] [facility] [address] [address] [place] [address] Referral ID Status Reason Start Date Expiration Date Visits Requested Visits Authorized [id number] Authorized Itemized Services 04/17/2024 04/17/[phone] Encounter Details Date Type Department Care Team (Late st Contact Info) Description 04/17/2024 Community Orders Non [facility] Provider Rasheed Gould III [facility] [address] [place] [address] Iron deficiency anemia, unspecified iron deficiency anemia [...] Primary documented in this encounter Care Teams Timber Sizer Operator Relationship Specialty Start Date End Date Rasheed Kimble [place] [address] [place], [place] [id number] PCP - General 04/13/17 documented as of this encounter
--- OUTSIDE RECORDS SUMMARY | 2025-07-19 16:07 | XMS_ITS | Encounter Summary ---
Author Organization [facility] Address [address] [place] [address] Care Team Providers Care Chain Offbearer Name Role Phone Rasheed Kimble Primary Care Provider [phone] Reason for Referral * Surgical Services (Routine) - Authorized Specialty Diagnoses / Procedures Referred By Elena hood Referred To Contact General Surgery Diagnoses Mass of soft tissue of left upper extremity Procedures REF GENERAL SURGERY - EXTERNAL DESTRUCT 1ST [place] PREMALIG LESION Roxana Mccabe [facility] [place] [address] [place] [address] [facility] [address] [address] [place] [address] Referral ID Status Reason Start Date Expiration Date Visits Requested Visits Authorized [id number] Authorized Procedure Only 05/15/2024 05/15/2025 5 5 Encounter Details Date Type Department Care Team (Late st Contact Info) Description 05/15/2024 Community Orders Non [facility] Provider Roxana Mccabe [facility] [place] [address] [place] [address] Mass of soft tissue of left upper extremity (Primary Dx) Social History Tobacco Use Types [...] soft tissue of left upper extremity- Primary documented in this encounter Care Teams Chain Offbearer Relationship Specialty Start Date End Date Rasheed Kimble [address] [id number] PCP - General 04/13/17 documented as of this encounter
--- OUTSIDE RECORDS SUMMARY | 2025-07-19 16:07 | XMS_ITS | Clinical Summary ---
Author Organization [facility] Address [address] [place] [address] Care Team Providers Care Supervisor Small Appliance Assembly Name Role Phone Pcp, None Selected Primary Care Provider Unavail able Allergies Active Allergy Reactions Criticality Noted Date Comments Doxycycline Rash,Other (see comm ents),GI intolerance Low 08/27/2024 fever Medications naltrexone (DEPADE) 50 mg tablet 1 tablet (50 mg total) daily 06/08/2024 Active acetaminophen (TYLENOL) 500 mg tablet Take 1 tablet (500 mg total) by mouth 2 (two) times a day as needed 06/08/2024 Active traZODone (DESYREL) 100 mg tablet Take 1 tablet (100 mg total) by mouth once daily as needed Active DULoxetine (CYMBALTA) 30 mg capsule Take 3 capsules (90 mg total) by mouth daily Active QUEtiapine (SEROquel) 50 mg tablet Take 1-3 tablets (50-150 mg total) by mouth daily 10/18/2024 Active Kapspargo Sprinkle 25 mg capsule,sprinkl e,ER 24hr Take 25 mg by mouth daily 11/02/2024 Active cloNIDine (CATAPRES) 0.1 mg tablet Take 1 tablet (0.1 mg total) by mouth 2 (two) times a day 10/12/2024 Active hydrOXYzine (VISTARIL) 50 mg capsule Take 1-2 capsules (50-100 mg total) by mouth 4 times daily 10/03/2024 Active ibuprofen (ADVIL,MOTRIN) 200 mg tablet Take 1 tablet (200 mg total) by mouth as needed for mild pain (1-3) Active MAGNESIUM CITRATE ORAL Take 250 mg by mouth daily Active melatonin 10 mg tablet Take 10 mg by mouth nightly Active multivitamin (THERAGRAN) tablet tablet Take 1 tablet by mouth daily Active cyanocobalamin 2,500 mcg tablet Take 1 tablet (2,500 mcg total) by mouth daily Vitamin B-12 Active Encounters Date Type Department Care Team Description 07/08/2025 Lab Requisition [facility] [place] [address] [place] [address] Kelsie Quiroz RPh Unspecified infectious disease; Peritoneal abscess (CMS/HCC); Unspecified severe protein-calorie malnutrition from Last 3 Months Family History Medical History Relation Comments Alcohol abuse Father Clotting disorder Father Depression Mother Clotting disorder Paternal Grandfather Relation Status Comments Father Mother Paternal Grandfather Social History Tobacco Use Types Packs/Day Years Used Date Smoking Tobacco: Never Smokeless Tobacco: Current Tobacco Cessation:Ready to Q uit: Not Asked; Counseling Given: Not Answered Comments:/ can Years used: 31 Alcohol Use Standard Drinks/Week Comments Not Currently 0 (1 standard drink = 0.6 oz pur e alcohol) Sex and Gender Information Value Date Recorded Sex Assigned at Not on file Legal Sex Male 7:34 PM PST Gender Identity Not on file Sexual Orientation Not on file Last Filed Vital Signs Vital Sign Reading Time Taken Comments Blood Pressure 136/89 11/12/2024 1:37 PM PDT Pulse 69 11/12/2024 1:37 PM PDT Temperature 36.7 C (98.1 F) 08/28/2024 1:48 AM PST Respiratory Rate 20 08/28/2024 1:48 AM PST Oxygen Saturation 100% 11/12/2024 1:37 PM PDT Inhaled Oxygen Concentration - - Weight 94.3 kg (208 lb) 11/12/2024 1:37 PM PDT Height 180.3 cm (5' 11) 08/27/2024 7:43 PM PST Body Mass Index 29.01 08/27/2024 7:43 PM PST Plan of Treatment Health Maintenance Due Date Last Done Comments MMR Vaccines (1 of 1 - Standard series) 1972 Depression Screening (PHQ-2) 1983 Hepatitis B Vaccines (1 of 3 - 19+ 3-dose series) 1990 Colorectal Cancer Screening (Colonoscopy) 2016 Colorectal Cancer Screening (FOBT) 2016 Colorectal Cancer Screening (Fecal DNA) 2016 Colorectal Cancer Screening Combined 2016 HM Pneumococcal Adult 50+ (1 of 1 - PCV) 2021 COVID-19 Vaccine ( season) 2025 05/26/2024, 07/22/2023, 01/08/2022, Additional history exists DTaP,Tdap,and Td Vaccines (3 - Td or Tdap) 06/02/2034 06/02/2024, 04/08/2021 RSV Patients Over 60 years OR qualifying ( Patients) (1 - 1-dose 75+ series) 2046 Zoster Vaccines Completed 03/28/2022, 01/08/2022 Influenza Vaccine Completed 05/23/2025, , 07/22/2023, Additional history exists HPV Vaccines Aged Out No longer eligi ble based on patient's age to complete this topic Hepatitis A Vaccines Aged Out No long er eligible based on patient's age to complete this topic IPV Vaccines Aged Out No longer eligi ble based on patient's age to complete this topic Procedures Procedure Name Priority Date/Time Associated Diagnosis [...] COUNT WITH DIFF Routine 07/08/2025 1:28 PM [facility] Unspecified infectious disease Peritoneal abscess (CMS/HCC) Unspecified severe protein-calorie malnutrition COMPREHENSIVE METABOLIC PANEL Routine 07/08/2025 1:28 PM [facility] Unspecified infectious disease Peritoneal abscess (CMS/HCC) Unspecified severe protein-calorie malnutrition from Last 3 Months Results * (ABNORMAL) Complete blood count with diff (07/08/2025 1:28 PM [facility]) WBC Auto 10.1 3.8 - 10.1 x10e3/uL 07/08/2025 4:48 PM [facility] RBC 4.42 4.40 - 5.80 x10e6/uL 07/08/2025 4:48 PM [facility] Hemoglobin 10.5(L) 13.8 - 17.2 g/dL 07/08/2025 4:48 PM [facility] Hematocrit 33.6(L) 41.0 - 50.0 % 07/08/2025 4:48 PM [facility] MCV 76(L) 81 - 100 fL 07/08/2025 4:48 PM [facility] MCH 23.8(L) 27.0 - 35.0 pg 07/08/2025 4:48 PM [facility] MCHC 31.3(L) 32.0 - 37.0 g/dL 07/08/2025 4:48 PM [facility] RDW 15.3 12.3 - 15.4 % 07/08/2025 4:48 PM [facility] Platelets 461(H) 150 - 400 x10e3/uL 07/08/2025 4:48 PM [facility] MPV 11.6(H) 7.4 - 10.4 fL 07/08/2025 4:48 PM [facility] NRBC % 0 0 /100 WBCs 07/08/2025 4:48 PM [facility] Abs. NRBC 0.0 x10e3/uL 07/08/2025 4:48 PM [facility] % Neutrophils 64 % 07/08/2025 4:48 PM [facility] % Lymphocytes 22 % 07/08/2025 4:48 PM [facility] % Monocytes 11 % 07/08/2025 4:48 PM [facility] % Eosinophils 2 % 07/08/2025 4:48 PM [facility] % Basophils 0 % 07/08/2025 4:48 PM [facility] Abs. Neutrophils 6.4 1.6 - 6.9 x10e3/uL 07/08/2025 4:48 PM [facility] Abs. Lymphocytes 2.2 1.1 - 4.8 x10e3/uL 07/08/2025 4:48 PM [facility] Abs. Monocytes 1.1(H) 0.0 - 1.0 x10e3/uL 07/08/2025 4:48 PM [facility] Abs. Eosinophils 0.2 0.0 - 0.5 x10e3/uL 07/08/2025 4:48 PM [facility] Abs. Basophils 0.0 0.0 - 0.4 x10e3/uL 07/08/2025 4:48 PM [facility] Abs. Neutrophils (Auto) 6,400.0 1,600.0 - 6,900.0 /uL 07/08/2025 4:48 PM [facility] Blood Venous blood / Unknown Venipuncture / Unknown 07/08/2025 1:28 PM PST 07/08/2025 4:21 PM [facility] us Kelsie Quiroz [facility] LAB BLOOD ORDERABLES Final Result [facility] [address] [place] [address], * (ABNORMAL) C-reactive protein (07/08/2025 1:28 PM [facility]) CRP, Serum/Plasma (mg/dL) 6.3(H) <1.0 mg/dL LAB CHEMISTRY METHOD 07/08/2025 4:49 PM [facility] Blood Venous blood / Unknown Venipuncture / Unknown 07/08/2025 1:28 PM PST 07/08/2025 4:18 PM PST [facility] LAB BLOOD ORDERABLES Final Result Performing Organization Address City/[facility]/ZIP Co de Phone Number [facility] [address] [place] [address], [place] [phone] * Triglycerides (07/08/2025 1:28 PM PST) Triglycerides Level, Serum/Plasma 60 <150 (NCEP reference range for fasting specimens) mg/dL LAB CHEMISTRY METHOD 07/08/2025 4:49 PM [facility] Blood Venous blood / Unknown Venipuncture / Unknown 07/08/2025 1:28 PM PST 07/08/2025 4:18 PM PST [facility] LAB BLOOD ORDERABLES Final Result Performing Organization Address [facility] de Phone Number [facility] [address] [place] [address], [place] [phone] * (ABNORMAL) Prealbumin (07/08/2025 1:28 PM PST) Pathologist [facility] Prealbumin, Serum/Plasma 16(L) 18 - 45 mg/dL LAB CHEMISTRY METHOD 07/08/2025 4:53 PM [facility] Blood Venous blood / Unknown Venipuncture / Unknown 07/08/2025 1:28 PM PST 07/08/2025 4:18 PM PST [facility] LAB BLOOD ORDERABLES Final Result Performing Organization Address [facility] Co de Phone Number [facility] [address] [place] [address], * Phosphorus (07/08/2025 1:28 PM PST) Pathologist [facility] Phosphorus, Serum/Plasma 3.4 2.5 - 4.5 mg/dL LAB CHEMISTRY METHOD 07/08/2025 4:49 PM [facility] Blood Venous blood / Unknown Venipuncture / Unknown 07/08/2025 1:28 PM PST 07/08/2025 4:18 PM PST [facility] LAB BLOOD ORDERABLES Final Result Performing Organization Address City/[facility]/ZIP Co de Phone Number [facility] [address] [place] [address], * Magnesium (07/08/2025 1:28 PM [facility]) Pathologist [facility] Magnesium, Serum/Plasma 2.0 1.6 - 2.4 mg/dL LAB CHEMISTRY METHOD 07/08/2025 4:49 PM [facility] Blood Venous blood / Unknown Venipuncture / Unknown 07/08/2025 1:28 PM PST 07/08/2025 4:18 PM [facility] LAB BLOOD ORDERABLES Final Result Performing Organization Address City/[facility]/ZIP Co de Phone Number [facility] [address] [place] [address], * (ABNORMAL) Comprehensive Metabolic Panel (07/08/2025 1:28 PM PST) Pathologist [facility] Sodium, Serum/Plasma 137 135 - 145 mmol/L LAB CHEMISTRY METHOD 07/08/2025 4:49 PM [facility] Potassium, Serum/Plasma 3.8 3.5 - 5.2 mmol/L LAB CHEMISTRY METHOD 07/08/2025 4:49 PM [facility] Chloride, Serum/Plasma 103 98 - 107 mmol/L LAB CHEMISTRY METHOD 07/08/2025 4:49 PM [facility] CO2, Serum/Plasma 21(L) 22 - 30 mmol/L LAB CHEMISTRY METHOD 07/08/2025 4:49 PM [facility] Anion Gap, Serum/Plasma 13(H) 3 - 11 mmol/L 07/08/2025 4:49 PM [facility] Urea Nitrogen, Serum/Plasma 16.1 6.0 - 24.0 mg/dL LAB CHEMISTRY METHOD 07/08/2025 4:49 PM [facility] Creatinine, Serum/Plasma 0.75(L) 0.76 - 1.27 mg/dL LAB CHEMISTRY METHOD 07/08/2025 4:49 PM [facility] Glucose, Serum/Plasma 66 65 - 99 mg/dL LAB CHEMISTRY METHOD 07/08/2025 4:49 PM [facility] Calcium, Serum/Plasma 9.2 8.5 - 10.1 mg/dL LAB CHEMISTRY METHOD 07/08/2025 4:49 PM [facility] AST, Serum/Plasma 24 17 - 59 U/L LAB CHEMISTRY METHOD 07/08/2025 4:49 PM [facility] ALT, Serum/Plasma 22 <50 U/L LAB CHEMISTRY METHOD 07/08/2025 4:49 PM [facility] Alkaline Phosphatase, Serum/Plasma 173(H) 25 - 150 U/L LAB CHEMISTRY METHOD 07/08/2025 4:49 PM [facility] Total Protein, Serum/Plasma 7.3 6.3 - 8.2 g/dL LAB CHEMISTRY METHOD 07/08/2025 4:49 PM [facility] eGFR, Serum/Plasma (CKD-EPI 2020) 108 >60 (CKD-EPI 2020) mL/min/1. 73 m2 07/08/2025 4:49 PM [facility] Comment: eGFR calculation has been updated by recommendation of the National Kidney Foundation (NKF) without the race variable. This change was made on November 15, 2022 Interpretation for GFR in Chronic Kidney Disease can be viewed below. Albumin, Serum/Plasma 3.3(L) 3.4 - 5.0 g/dL LAB CHEMISTRY METHOD 07/08/2025 4:49 PM [facility] Bilirubin, Total, Serum/Plasma <0.90 0.2 - 1.3 mg/dL LAB CHEMISTRY METHOD 07/08/2025 4:49 PM [facility] BUN/Creatinine Ratio, Serum/Plasma 21.5 6.0 - 24.0 07/08/2025 4:49 PM [facility] Blood Venous blood / Unknown Venipuncture / Unknown 07/08/2025 1:28 PM [facility] 07/08/2025 4:18 PM [facility] Narrative [facility] - 07/08/2025 4:49 PM [facility] Interpretive Data The estimated glomerular filtration rate [...] CKD (Kidney Int Suppl 2013;3:1-150) Kelsie Quiroz [facility] LAB BLOOD ORDERABLES Final Result [facility] [address] [place] [address], from Last 3 Months Insurance [facility] Care Teams Supervisor Small Appliance Assembly Relationship Specialty Start Date End Date Pcp, None Selected PCP - General 12/13/24
--- OUTSIDE RECORDS SUMMARY | 2025-07-19 16:07 | XMS_ITS | Encounter Summary ---
Author Organization [facility] Address [address] [place] [address] Care Team Providers Care Heel Seat Filler Name Role Phone Rasheed Kimble Primary Care Provider [phone] Reason for Referral * Eye Care (Routine) - Authorized Specialty Diagnoses / Procedures Referred By Elena hood Referred To Contact Ophthalmology Diagnoses Blepharitis of right lower eyelid, unspecified type Procedures REF OPHTHALMOLOGY OFFICE/OUTPATIENT ESTABLISHED MOD MDM 30 MIN Fátima Hanna [facility] [address] [address] Phone: tel: fax: [facility] [place] [address] [place] [phone] Referral ID Status Reason Start Date Expiration Date Visits Requested Visits Authorized [id number] Authorized Evaluate and Treat-Surgery if Indicated 09/16/2023 09/15/2024 6 6 Encounter Details Date Type Department Care Team (Late st Contact Info) Description 09/16/2023 Community Orders Non [facility] Provider Fátima Hanna [facility] [address] [address] Presbyopia (Primary Dx); Blepharitis of right lower eyelid, unspecified type Social History Tobacco Use Types Packs/Day Years Used Date Smoking Tobacco: Never Assessed Sex and Gender Information Value Date Recorded Sex Assigned at Not on file Legal Sex Male 9:41 PM PST Gender Identity Not on file Sexual Orientation Not on file documented as of this encounter Plan of Treatment Not on file documented as of this encounter Visit Diagnoses Diagnosis Presbyopia- Primary Blepharitis of right lower eyelid, unspecified type documented in this encounter Care Teams Heel Seat Filler Relationship Specialty Start Date End Date Rasheed Kimble [address] [address] PCP - General 04/13/17 documented as of this encounter
== END ==
LOC: WC 11:30
PROVIDERS: Visit Provider Surgery
DX: K94.19 Other complications of enterostomy (principal)
CPT/HCPCS: 99213

== ENCOUNTER → 2025-07-23 10:23 | Outpatient (CLI) | payer OTHER, SELFPAY | LOC: WC 10:33 | PROVIDERS: Visit Provider Surgery | DX: Z93.2 Ileostomy status (principal) | CPT/HCPCS: 99213 ==

== ENCOUNTER → 2025-07-31 10:36 | Outpatient (CLI) | payer OTHER, SELFPAY | LOC: WC 10:37 | PROVIDERS: Visit Provider Surgery | DX: Z93.2 Ileostomy status (principal) | CPT/HCPCS: 99212 ==

== ENCOUNTER 2025-08-03 11:29 | Emergency (ER) | payer OTHER, SELFPAY ==
[2025-08-03] VITALS (12 sets, daily range): BP systolic 111–135; BP diastolic 68–84; PULSE 82–106; RESP 16–18; TEMP 36.7; O2SAT 98–100; BMI 23.7
[2025-08-03 12:19] LABS: Add Manual Diff / Slide Review NO; Hematocrit 31.7 % (41-53); Hemoglobin 10.2 g/dL (13.5-17.5); Lymphocytes Absolute Auto 1700 /uL (1100-4500); Mean Corpuscular HGB Conc 32.0 % (30-36); Mean Corpuscular Hemoglobin 23.6 PG (26-34); Mean Corpuscular Volume 73.7 fL (80-100); Platelet Count 309 X10^3/uL (150-400)
--- NOTE | 2025-08-03 12:21 | DI.CT.S_ITS ---
PROCEDURE: CT ABDOMEN PELVIS W CON INDICATIONS: abd pain TECHNIQUE: After the administration of intravenous contrast, axial sections acquired from the lung bases to the pubic symphysis. Coronal and sagittal reformats were performed. For radiation dose reduction, the following was used: automated exposure control, adjustment of mA and/or kV according to patient size. COMPARISON: [facility], CT, CT ABDOMEN PELVIS W CON, 04/18/2025, 19:28. FINDINGS: Image quality: Diagnostic. Lower Chest: No significant findings. ABDOMEN: Liver: No solid mass. Gallbladder: Post cholecystectomy. Biliary ducts: No biliary dilation. Pancreas: No ductal dilation. Spleen: Size is within normal limits. Adrenal Glands: No adrenal nodules. Kidneys and Ureters: No hydronephrosis. No solid mass. No complex renal cystic lesion which requires follow up. Stomach and Bowel: Post gastric bypass. Ostomy in the right lower quadrant and midline inferior abdomen. Moderate stool burden adjacent to the ostomy. Postsurgical changes from partial colectomy. Inflammatory changes in the posterior mid abdomen along the tract of a prior surgical drain. Mildly prominent dilated loops of bowel without discrete transition point. Peritoneum: No abnormal intraperitoneal fluid. No free air. Ventral Wall: No significant ventral hernia. Abdominal Nodes: No retroperitoneal or mesenteric adenopathy by size criteria. Vessels: Aorta and inferior vena cava are normal in size. PELVIS: Pelvic Organs: Unremarkable. Bladder: No bladder wall thickening, accounting for underdistention. Pelvic Nodes: No enlarged lymph nodes. Miscellaneous: No inguinal hernias are seen. Bones: No aggressive osseous abnormality. Degenerative changes in the thoracic and lumbar spine. IMPRESSION: Postsurgical changes from partial colectomy, midline and right lower quadrant ostomy creation. Multiple prominent loops of bowel within the mid abdomen and left upper quadrant without discrete transition point identified. These findings are concerning for bowel obstruction. Dictated by: Sunny Espinal M.D. on 08/03/2025 at 13:37 Approved by: Sunny Espinal M.D. on 08/03/2025 at 13:54
[2025-08-03 12:26] LABS: Alanine Aminotransferase 7 IU/L (<50); Albumin 3.5 g/dL (3.5-5.0); Albumin Globulin Ratio 0.9 (1.0-2.8); Alkaline Phosphatase 122 U/L (38-126); Blood Urea Nitrogen 16 mg/dL (9-20); Calcium 8.8 mg/dL (8.4-10.2); Carbon Dioxide 20 mmol/L (22-32); Chloride 106 mmol/L (98-107); Estimated Glomerular Filt Rate > 60 mL/min (>60); Globulin 3.8 g/dL (1.7-4.1); Glucose 103 mg/dL (70-99); HEMOLYSIS < 15 (0-50); Lipase 20 U/L (23-300); Potassium 3.9 mmol/L (3.4-5.1); Sodium 136 mmol/L (137-145); Total Protein 7.3 g/dL (6.3-8.2)
--- NOTE | 2025-08-03 12:41 | PC.NURSE ---
Patient has weekly visit from central line RN for central line care. Patient states home health nurse comes 2x a week for other care.
[2025-08-03] MEDS: KETOROLAC 30 MG/ML VIAL IV (14:28)
--- NOTE | 2025-08-03 15:17 | ED.ABDPAIN ---
HPI - Abdominal Pain General Chief Complaint: Abdominal Pain Stated Complaint: Swelling RT lower abd, this am pain was bilat Time Seen by Provider: 08/03/25 12:16 History of Present Illness HPI narrative: This is a 54-year-old white male with a history of a bowel resection in November at [facility] who comes in with several days of pain and swelling in the right lower quadrant of his abdomen. No fevers or chills or nausea or vomiting the said his stools have been runny. And there is stool in the ostomy bag. Patient describes the pain is simply has pain intermittent unprovoked and self-limited. Related Data Home Medications ?Medication ?Instructions ?Recorded ?Confirmed MULTIVITAMIN 1 cap PO QDAY ##0 11/09/12 duloxetine 60 mg capsule,delayed 60 mg PO DAILY 09/05/21 09/05/21 release Previous Rx's ?Medication ?Instructions ?Recorded cephalexin 500 mg capsule 500 mg PO TID cellulitis #21 caps 09/05/21 Allergies Allergy/AdvReac Type Severity Reaction Status Date / Time amoxicillin Allergy Intermediate Rash Verified 09/05/21 16:07 doxycycline Allergy Intermediate Rash Verified 09/05/21 16:07 Review of Systems Review of Systems Narrative: GENERAL: Denies chills, fatigue, malaise, fever, sweats. HEENT: Denies sinus pain, ear pain, sore throat, difficulty swallowing, dizziness. RESPIRATORY: Denies dyspnea, cough, wheezing, hemoptysis, sputum. CARDIOVASCULAR: Denies chest pain, palpitations, orthopnea, edema, GASTROINTESTINAL: See HPI : Denies dysuria, frequency, incontinence, hematuria, urinary retention. MUSCULOSKELETAL: denies weakness, joint pain, or bony pain SKIN: Denies rash, skin lesions, or other NEUROLOGIC: Denies weakness, headache, numbness, change in speech, confusion, seizures, incoordination. PSYCHIATRIC: No concerning psychosocial issues. 12 point review of systems is negative except for those stated above Patient History alcohol intake frequency: 0-2 drinks per day Exam Narrative Exam Narrative: GENERAL: [] year old patient appears stated age. Well-developed patient, in mild distress. HEAD: Atraumatic. Normocephalic. EYES: Pupils equal round and reactive. Extraocular motions intact. No scleral icterus. No injection or drainage. ENT: Nose without bleeding, purulent drainage. Throat without erythema, tonsillar hypertrophy or exudate. Airway patent. NECK: Trachea midline. Non tender CARDIOVASCULAR: Regular rate and rhythm without murmurs, gallops, or rubs. RESPIRATORY: Clear to auscultation. Breath sounds equal bilaterally. No wheezes, rales, or rhonchi. GASTROINTESTINAL: Abdomen soft, there is tenderness in the right lower quadrant no guarding or rebound, nondistended. EXTREMITIES: No edema or joint tenderness. BACK: Nontender without deformity or crepitance. No flank tenderness. NEURO: AOx3. SKIN: No rash or erythema of visible areas Initial Vital Signs Initial Vital Signs: Vital Signs Temperature 98.0 F 08/03/25 11:54 Pulse Rate 106 H 08/03/25 11:54 Respiratory Rate 16 08/03/25 11:54 Blood Pressure 135/79 08/03/25 11:54 Pulse Oximetry 99 08/03/25 11:54 Oxygen Delivery Method Room Air 08/03/25 11:54 Course Orders Ordered: ED Orders 08/03/25 12:10 Complete Blood Count AUTO DIFF Stat Comprehensive Metabolic Panel Stat Lipase Stat 08/03/25 12:11 Urinalysis and Microscopic Stat 08/03/25 12:21 CT abdomen pelvis w con Stat Ondansetron HCl (Ondansetron 4 Mg/2 Ml Inj) 4 mg IV NOW PRN PRN Reason: Nausea And Vomiting Ondansetron HCl (Ondansetron 4 Mg Odt) 4 mg PO NOW PRN PRN Reason: Nausea And Vomiting Discontinued Medications Ketorolac Tromethamine (Ketorolac 30 Mg/Ml Vial) 30 mg IV NOW ONE Stop: 08/03/25 14:25 Last Admin: 08/03/25 14:28 Dose: 30 mg Documented By: SHWETA Vital Signs Vital signs: Vital Signs - 8 hr 08/03/25 11:54 08/03/25 12:11 08/03/25 12:12 Temperature 98.0 F Pulse Rate 106 H 98 H Respiratory Rate 16 Blood Pressure 135/79 115/83 Pulse Oximetry 99 98 Oxygen Delivery Method Room Air 08/03/25 12:12 08/03/25 12:25 08/03/25 12:25 Temperature Pulse Rate 97 H 90 Respiratory Rate Blood Pressure 111/68 Pulse Oximetry 99 99 Oxygen Delivery Method 08/03/25 12:30 08/03/25 12:30 08/03/25 13:00 Temperature Pulse Rate 94 H Respiratory Rate Blood Pressure 115/72 117/76 Pulse Oximetry 100 Oxygen Delivery Method 08/03/25 13:00 08/03/25 13:30 08/03/25 14:00 Temperature Pulse Rate 89 88 87 Respiratory Rate Blood Pressure Pulse Oximetry 100 99 100 Oxygen Delivery Method 08/03/25 14:17 08/03/25 14:17 08/03/25 14:30 Temperature Pulse Rate 86 86 Respiratory Rate Blood Pressure 134/84 Pulse Oximetry 100 100 Oxygen Delivery Method 08/03/25 15:00 Temperature Pulse Rate 82 Respiratory Rate Blood Pressure Pulse Oximetry 100 Oxygen Delivery Method MDM - Abdominal Pain Lab Data 08/03/25 12:10 08/03/25 12:10 Labs: Lab Results 08/03/25 Range/Units 12:10 WBC 8.5 (4.5-11.0) X10^3/uL RBC 4.31 L (4.5-5.9) X10^6/uL Hgb 10.2 L (13.5-17.5) g/dL Hct 31.7 L (41-53) % MCV 73.7 L (80-100) fL MCH 23.6 L (26-34) PG MCHC 32.0 (30-36) % RDW 18.6 H (11.6-14.8) % Plt Count 309 (150-400) X10^3/uL Neut % (Auto) 66.0 (50-75) % Lymph % (Auto) 20.3 L (25-40) % [place] % (Auto) 11.1 (3-14) % Eos % (Auto) 2.4 (2-4) % Baso % (Auto) 0.2 (0-2) % Neut # (Auto) 5600 (8266-4741) /uL Lymph # (Auto) 1700 (2121-8775) /uL [place] # (Auto) 900 (0-900) /uL Eos # (Auto) 200 (0-450) /uL Baso # (Auto) 0 (0-100) /uL Sodium 136 L (137-145) mmol/L Potassium 3.9 (3.4-5.1) mmol/L Chloride 106 (98-107) mmol/L Carbon Dioxide 20 L (22-32) mmol/L BUN 16 (9-20) mg/dL Creatinine 0.76 (0.66-1.25) mg/dL Estimated GFR > 60 (>60) mL/min BUN/Creatinine Ratio 21.1 (6-22) Glucose 103 H (70-99) mg/dL Calcium 8.8 (8.4-10.2) mg/dL Total Bilirubin 0.2 (0.2-1.3) mg/dL AST 22 (17-59) IU/L ALT 7 (<50) IU/L Alkaline Phosphatase 122 (38-126) U/L Total Protein 7.3 (6.3-8.2) g/dL Albumin 3.5 (3.5-5.0) g/dL Globulin 3.8 (1.7-4.1) g/dL Albumin/Globulin Ratio 0.9 L (1.0-2.8) Lipase 20 L (23-300) U/L Point of care testing: Urine Dip Bedside Urine Glucose Negative Bedside Urine Bilirubin - Negative Bedside Urine Ketone - Negative Urine Specific [place] 1.010 Bedside Urine Occult Blood - Negative Bedside Urine pH 6.0 Bedside Urine Protein - Negative Bedside Urine Urobilinogen - Negative Bedside Urine Nitrite - Negative Bedside Urine Leukocytes - Negative Esterase MDM Narrative Medical decision making narrative: Patient had a CAT scan of the abdomen and pelvis read by the radiologist as postsurgical changes from partial colectomy midline and right lower quadrant ostomy creation multiple prominent loops of bowel within the mid abdomen and left upper quadrant without discrete transition point. Patient has CBC within normal limits chemistry within normal limits lipase was within normal limits. I did discuss the case with the tech team at [facility] who felt that this was not an acute emergency being the patient was having output through the ostomy bag. They stated they would be happy to follow up with him beginning of next week and the knee can call them back if there are any other concerns. I did communicate this with the patient and his and they were satisfied and will be discharged home. Differential diagnosis includes enteritis small-bowel obstruction partial bowel obstruction Discharge Plan Departure Patient Disposition: Home Clinical Impression: Abdominal pain Qualifiers: Abdominal location: right lower quadrant Qualified Code(s): R10.31 - Right lower quadrant pain Instructions: DI for Abdominal Pain-Adult Prescriptions: No Action duloxetine 60 mg capsule,delayed release(DR/EC) 60 mg PO DAILY MULTIVITAMIN 1 cap PO QDAY Qty: 0 cephalexin 500 mg capsule 500 mg PO TID Qty: 21 0RF Referrals: Rasheed Gould ARNP [Primary Care Provider, Family Practice] - 3-5 days Stand Alone Forms: Patient Portal/API
== END 2025-08-03 15:53 | disposition home or self-care (01) ==
PROVIDERS: Emergency Provider Emergency Medicine
DX: R10.31 Right lower quadrant pain (principal); Z93.3 Colostomy status; Z90.49 Acquired absence of other specified parts of digestive tract
CPT/HCPCS: 74177; 80053; 81003; 83690; 85025; 96374; 99284; J1885; Q9967

== ENCOUNTER → 2025-08-07 13:59 | Outpatient (CLI) | payer OTHER, SELFPAY | LOC: WC 14:11 | PROVIDERS: Visit Provider Surgery | DX: T83.038A Leakage of other urinary catheter, initial encounter (principal); Z93.2 Ileostomy status; K63.2 Fistula of intestine | CPT/HCPCS: 99213 ==

== ENCOUNTER → 2025-08-20 08:39 | Outpatient (CLI) | payer OTHER, SELFPAY | LOC: WC 08:40 | PROVIDERS: Referring Provider Physician Assistant; Visit Provider Surgery | DX: Z93.3 Colostomy status (principal) | CPT/HCPCS: 99212 ==